=== PATIENT | male | born 1930 | race Caucasian/White ===

== ENCOUNTER 2021-07-21 08:55 | Inpatient (IN) ==
[2021-07-21] MEDS ORDERED: IOPAMIDOL 125 ML BOTTLE IV ONE ×2 (08:56→21:40)
[2021-07-21] MEDS ORDERED: LIDOCAINE 2% URO-JET 10 ML JEL.PF.APP UR ONE (09:26)
[2021-07-21] MEDS ORDERED: LIDOCAINE JEL 2% 1 TUBE 5ML TOPICAL ONE (09:33)
--- NOTE | 2021-07-21 09:33 | Emergency Department Note ---
Male Urogenital HPI General Chief complaint: Urogenital-Male Stated complaint: bleeding penis Time Seen by Provider: 07/21/21 09:00 Source: patient and EMS Mode of arrival: EMS Limitations: no limitations History of Present Illness HPI Narrative: Patient is an 89-year-old gentleman who arrives emergency department complaining of penile bleeding. History is provided by the patient and supplemental information provided by residential staff. The patient has been found to have bleeding from his penis for the past 2 days. This is gradual in onset has been progressively worsening. He has mild discomfort but denies any pain in his penis. He cannot think of any trauma that might of precipitated this. He denies any fever chills or difficulty urinating. He is never had anything like this before. Nothing seems to make it any better or worse. Related Data Home Medications Medication Instructions Recorded Confirmed Dulcolax (bisacodyl) 10 mg ID PRN PRN 07/22/21 07/22/21 Toprol XL 50 mg PO QDAY 07/22/21 07/22/21 acetaminophen 650 mg PO Q4HP PRN MDD 3000mg 07/22/21 07/22/21 atorvastatin 10 mg PO HS 07/22/21 07/22/21 duloxetine 30 mg PO HS 07/22/21 07/22/21 fluticasone propionate 1 puff PO BID 07/22/21 07/22/21 furosemide 40 mg PO QDAY 07/22/21 07/22/21 guaifenesin 600 mg PO BID 07/22/21 07/22/21 lisinopril 2.5 mg PO QDAY 07/22/21 07/22/21 spironolactone 25 mg PO QDAY 07/22/21 07/22/21 Allergies Allergy/AdvReac Type Severity Reaction Status Date / Time No Known Drug Intolerances Allergy Unknown Verified 07/21/21 17:04 GENERIC: UNK - UNKNOWN Allergy Unknown Uncoded 05/01/15 03:59 ALLERGIES NEEDS REVIEW No to Iodine Allergy Unknown Unknown Uncoded 05/01/15 03:59 No to Latex Allergy Unknown Uncoded 05/01/15 03:59 Review of Systems ROS All systems ED: reviewed and negative except as stated. Gastrointestinal: Denies abdominal pain, nausea and vomiting PFSH Narrative Patient History Narrative: Narrative: Medical/Surgical/Family History All Active Problems (Updated 07/22/21 @ 07:20 by Cristofer Brooks DO) Anemia, normocytic normochromic (Acute) Pulmonary embolism (Acute) Gross hematuria (Acute) Medical History COPD (chronic obstructive pulmonary disease) COVID-19 Dementia Pulmonary embolus Social History Smoking Status: Never smoker Alcohol Intake Frequency: holiday/special occasion only Exam Narrative Narrative: I reviewed the vital signs. Gen -patient is awake and alert and in no acute distress. The patient is well groomed. HEENT -head is atraumatic. There is no conjunctival pallor or scleral icterus. Mucous membranes are moist. CV -S1-S2 regular rate and rhythm. Peripheral pulses are palpable. There is no JVD. Resp -breathing is nonlabored. Lungs are clear to auscultation bilaterally. There is no cyanosis. GI - Abdomen is soft and nontender to palpation. There is no guarding or rebound tenderness. Derm -skin is warm and dry. There is no visible rash. -genitourinary exam performed with the patient's nurse at bedside. There is a small amount of bright red blood from the urethral meatus and blood in the patient's depends. There is no active bleeding. MSK -present extremities are atraumatic. Psych -patient has appropriate affect. The patient does not appear internally stimulated. Neuro -patient answers questions appropriately with fluent speech. Patient moves all present extremities equally. General Limitations: no limitations Course Vital Signs Vital signs: Vital Signs Temperature 97.7 F 07/21/21 09:00 Pulse Rate 76 07/21/21 09:00 Respiratory Rate 16 07/21/21 09:00 Blood Pressure 117/82 07/21/21 09:00 Pulse Oximetry (%) 98 07/21/21 09:00 Temperature 98.3 F 07/22/21 03:45 Pulse Rate 76 07/22/21 03:45 Respiratory Rate 16 07/22/21 03:45 Blood Pressure 110/63 07/22/21 03:45 Pulse Oximetry (%) 95 07/22/21 03:45 [facility] Narrative Medical decision making narrative: Patient presents complaining of penile bleeding. I personally performed interpreted limited bedside ultrasound that reveals a distended urinary bladder with approximately 160 mL of urine and visible clots despite patient's inability to void successfully. Nursing staff attempted to place a Dietz catheter but were unsuccessful after multiple attempts. I then called and spoke with Dr. Paez who evaluated the patient in person in the emergency department. He was able to successfully dilate and catheterize the patient's urethra through his hypospadias and he requested a CT pyelogram. This was obtained and Dr. Paez continue to reassess the patient in the emergency department. The patient continued to have significant hematuria with clots despite large volume bladder irrigation. Given this, Dr. Paez recommended admission to the hospital. He spoke with Dr. Andrew who will admit the patient to the medical service. Lab Data Lab results reviewed: Yes I reviewed the patient's lab results. Result diagrams: 07/22/21 01:00 07/22/21 05:42 Labs: Lab Results 07/21/21 07/21/21 07/21/21 Range/Units 11:26 11:26 11:26 WBC 10.2 (4.5-11.0) K/mcL RBC 4.32 L (4.63-6.08) M/mcL Hgb 11.9 L (13.7-17.5) g/dL Hct 37.0 L (40.1-51.0) % POC Hct 36 L (41-55) % MCV 85.6 (80.0-100.0) fL MCH 27.5 (26.0-34.0) pg MCHC 32.2 (31.0-36.0) g/dL RDW 15.6 H (11.5-14.5) % Plt Count 266 (140-440) K/mcL MPV 10.2 (7.4-10.4) fL Neut % (Auto) 75.4 (38.0-78.0) % Lymph % (Auto) 15.0 L (15.5-49.0) % Alexander % (Auto) 8.3 (1.0-12.0) % Eos % (Auto) 0.9 (0.0-7.0) % Baso % (Auto) 0.4 (0.0-2.0) % Lymph # (Auto) 1.53 (1.50-4.80) K/mcL Alexander # (Auto) 0.84 (0.10-0.90) K/mcL Eos # (Auto) 0.09 (0.00-0.70) K/mcL Baso # (Auto) 0.04 (0.00-0.30) K/mcL Absolute Neutrophils 7.67 (1.80-8.00) K/mcL POC PT 12.5 (11.9-14.5) sec POC INR 1.0 (0.8-1.2) POC Sodium 135 (133-145) mEq/L POC Potassium 4.2 (3.3-5.1) mEql/L POC Chloride 94 L (96-108) mEq/L POC Total CO2 26 (22-30) mmol/L POC BUN 20 (6-20) mg/dL POC Creatinine 0.8 (0.6-1.2) mg/dL POC Glucose 88 (70-105) mg/dL POC WB Ioniz Calcium 1.15 L (1.16-1.32) mmEq/L Urine Color Urine Appearance (Clear) Urine pH (5.0-9.0) Ur Specific [place] (1.000-1.035) Urine Protein (Negative) mg/dL Urine Glucose (UA) (Negative) mg/dL Urine Ketones (Negative) mg/dL Urine Occult Blood (Negative) mg/dL Urine Nitrate (Negative) Urine Bilirubin (Negative) mg/dL Urine Urobilinogen mg/dL Ur Leukocyte Esterase (Negative) /ug Urine RBC (0-3) /hpf Urine WBC (0-4) /hpf Ur Squamous Epith Cells (0-4) /hpf Urine Bacteria (0) /hpf Ur Culture Indicated? 07/21/21 Range/Units 13:10 WBC (4.5-11.0) K/mcL RBC (4.63-6.08) M/mcL Hgb (13.7-17.5) g/dL Hct (40.1-51.0) % POC Hct (41-55) % MCV (80.0-100.0) fL MCH (26.0-34.0) pg MCHC (31.0-36.0) g/dL RDW (11.5-14.5) % Plt Count (140-440) K/mcL MPV (7.4-10.4) fL Neut % (Auto) (38.0-78.0) % Lymph % (Auto) (15.5-49.0) % Alexander % (Auto) (1.0-12.0) % Eos % (Auto) (0.0-7.0) % Baso % (Auto) (0.0-2.0) % Lymph # (Auto) (1.50-4.80) K/mcL Alexander # (Auto) (0.10-0.90) K/mcL Eos # (Auto) (0.00-0.70) K/mcL Baso # (Auto) (0.00-0.30) K/mcL Absolute Neutrophils (1.80-8.00) K/mcL POC PT (11.9-14.5) sec POC INR (0.8-1.2) POC Sodium (133-145) mEq/L POC Potassium (3.3-5.1) mEql/L POC Chloride (96-108) mEq/L POC Total CO2 (22-30) mmol/L POC BUN (6-20) mg/dL POC Creatinine (0.6-1.2) mg/dL POC Glucose (70-105) mg/dL POC WB Ioniz Calcium (1.16-1.32) mmEq/L Urine Color Red Urine Appearance Clear (Clear) Urine pH 8.0 (5.0-9.0) Ur Specific [place] 1.007 (1.000-1.035) Urine Protein >=500 A (Negative) mg/dL Urine Glucose (UA) 150 A (Negative) mg/dL Urine Ketones 5 A (Negative) mg/dL Urine Occult Blood >=1.0 A (Negative) mg/dL Urine Nitrate Negative (Negative) Urine Bilirubin Negative (Negative) mg/dL Urine Urobilinogen Negative mg/dL Ur Leukocyte Esterase Negative (Negative) /ug Urine RBC 35 H (0-3) /hpf Urine WBC 0 (0-4) /hpf Ur Squamous Epith Cells 0 (0-4) /hpf Urine Bacteria None (0) /hpf Ur Culture Indicated? No ED POC Tests ED POC Tests: MARIJA - SARS Antigen Negative Discharge Plan Patient/Caregiver Discharge Instructions Pt seen by HAIR MACHINE OPERATOR/PA only: No Clinical Impression: Gross hematuria Patient Disposition: Xfer As Inpt ([facility]) Condition: Fair Discharge Date/Time: 07/21/21 21:30
[2021-07-21 11:33] LABS: POC Pro Time 12.5 sec (11.9-14.5)
[2021-07-21 11:34] LABS: POC Blood Urea Nitrogen 20 mg/dL (6-20); POC CO2 26 mmol/L (22-30); POC Calcium, Ionized 1.15 mmEq/L (1.16-1.32); POC Chloride 94 mEq/L (96-108); POC Creatinine 0.8 mg/dL (0.6-1.2); POC Glucose, Random 88 mg/dL (70-105); POC Hematocrit 36 % (41-55); POC Potassium 4.2 mEql/L (3.3-5.1); POC Sodium 135 mEq/L (133-145)
[2021-07-21 12:00] LABS: Basophils # (Auto) 0.04 K/mcL (0.00-0.30); Basophils % (Auto) 0.4 % (0.0-2.0); Eosinophils # (Auto) 0.09 K/mcL (0.00-0.70); Eosinophils % (Auto) 0.9 % (0.0-7.0); Hemoglobin 11.9 g/dL (13.7-17.5); Lymphocytes # (Auto) 1.53 K/mcL (1.50-4.80); Mean Cell Volume 85.6 fL (80.0-100.0); Mean Corpuscular HGB Conc 32.2 g/dL (31.0-36.0); Mean Platelet Volume 10.2 fL (7.4-10.4); Monocytes # (Auto) 0.84 K/mcL (0.10-0.90); Monocytes % (Auto) 8.3 % (1.0-12.0); Neutrophils % (Auto) 75.4 % (38.0-78.0); Platelet Count 266 K/mcL (140-440); RBC 4.32 M/mcL (4.63-6.08); Red Cell Distribution Width 15.6 % (11.5-14.5); WBC 10.2 K/mcL (4.5-11.0)
[2021-07-21] MEDS ORDERED: morphine 4 MG/ML VIAL IV ONE ×3 (14:22→20:33)
--- NOTE | 2021-07-21 14:47 | Cat Scan Report ---
CLINICAL INFORMATION: Hematuria COMPARISON: None TECHNIQUE: Axial imaging of the abdomen and pelvis was obtained before and after administration of 120 mL of Isovue-370 intravenous contrast. FINDINGS: No acute abnormality of liver, spleen, pancreas or adrenal glands. Kidneys normal in appearance. No renal or ureteral calculi. No hydronephrosis or perinephric inflammation. No renal mass. Large and small bowel are without acute abnormality. There is significant colonic diverticulosis without diverticulitis. There is severely abnormal appearance of the urinary bladder. Catheter in place. Irregular material present around the bladder suggestive of blood clot. Wall of urinary bladder is diffusely heterogeneous and there appears to be some air within the wall of the urinary bladder. Prominent areas of enhancement noted at periphery wall which may represent active contrast extravasation/bleeding. Significant atherosclerotic disease of aorta. 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 Moderate facet disease at origins of large abdominal vessels. IMPRESSION: #1.Irregularly thickened wall of urinary bladder with some intraluminal gas. Reportedly the patient has just had difficult placement of Dietz catheter which would explain the small degree of intraluminal air. Prominent blood clot within the urinary bladder as well as apparent active bleeding at posterior wall of urinary bladder. #2. Normal kidneys and ureters Interpreted and Authenticated by: Sai Garcia M.D. 07/21/21
[2021-07-21] MEDS ORDERED: cefTRIAXone 2 GM in DEXTROSE 5% IN WATER 50 ML IV ONE (15:45)
[2021-07-21 16:15] LABS: Appearance,Urine CLEAR (Clear); Bilirubin,Urine Negative (Negative); Color,Urine RED; Culture Indicated,Urine No; Glucose,Urine (UA) 150 mg/dL (Negative); Ketones,Urine 5 mg/dL (Negative); Leukocyte Esterase,Urine Negative /ug (Negative); Nitrate,Urine Negative (Negative); Protein,Urine >=500 mg/dL (Negative); Specific Gravity,Urine 1.007 (1.000-1.035); Urine Blood >=1.0 mg/dL (Negative); Urine RBC 35 /hpf (0-3); Urine Squamous Epithelial Cell 0 /hpf (0-4); Urine WBC 0 /hpf (0-4); Urobilinogen,Urine Negative
--- NOTE | 2021-07-21 16:53 | Urology Consult Note ---
HPI Data of Consult Consult date: 07/21/21 Primary Care Provider: [facility] Consult Narrative Patient Information: Note initiated : 07/21/21 at 4:41 pm Service Date, if different from initiated Date: [] Patient: Pancho Ha 89 y/o M admitted on for bleeding penis. Chief Complaint: [] cc:: 89-year-old white male presents to the emergency room with 2-day history of gross hematuria with dysuria and urgency. Patient's had negative past history his knowledge and resides at a assisted living facility. Patient's had attempt to place Dietz catheter by nursing staff which was unsuccessful and bedside ultrasound reveals 130+ cc residual urine with apparent bladder clots. Urology consultation has now been obtained for diagnosis and management as well as treatment. Patient by report has been on Eliquis. No known trauma history Genitourinary Additional comments: No noted past history PFSH PFSH Medical History COPD (chronic obstructive pulmonary disease) COVID-19 Dementia Pulmonary embolus Social History alcohol intake frequency: holiday/special occasion only MEDS/ALLERGIES Home Medications and Allergies Allergies Allergy/AdvReac Type Severity Reaction Status Date / Time No Known Drug Intolerances Allergy Unknown Verified 07/21/21 09:29 GENERIC: UNK - UNKNOWN Allergy Unknown Uncoded 05/01/15 03:59 ALLERGIES NEEDS REVIEW No to Iodine Allergy Unknown Unknown Uncoded 05/01/15 03:59 No to Latex Allergy Unknown Uncoded 05/01/15 03:59 Physical Examination Vital Signs Vital signs: Temp Pulse Resp BP Pulse Ox 97.7 F 95 H 16 108/66 98 07/21/21 09:00 07/21/21 16:04 07/21/21 09:00 07/21/21 16:04 07/21/21 16:04 Additional Findings Additional exam: Patient is a thin white male examined with supine position on the emergency room gurney in room T8 Patient has some distress secondary to lower abdominal discomfort but is alert and cooperative Patient is able to answer questions with what seems to be appropriate responses HEENT within normal limits Back no CVA tenderness Respiratory normal respiratory excursion Cardiac with regular rhythm abdominal exam nonobese some mild suprapubic tenderness to percussion and no palpably enlarged bladder noted -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 with apparent pinpoint opening and upon manipulation some blood per meatus Testes bilaterally descended Rectal deferred Musculoskeletal within normal limits with some likely weakness but no obvious pedal edema Results Labs Result diagrams: 07/21/21 11:26 Labs: Abnormal lab results 07/21/21 07/21/21 07/21/21 Range/Units 11:26 11:26 13:10 RBC 4.32 L (4.63-6.08) M/mcL Hgb 11.9 L (13.7-17.5) g/dL Hct 37.0 L (40.1-51.0) % POC Hct 36 L (41-55) % RDW 15.6 H (11.5-14.5) % Lymph % (Auto) 15.0 L (15.5-49.0) % POC Chloride 94 L (96-108) mEq/L POC WB Ioniz Calcium 1.15 L (1.16-1.32) mmEq/L Urine Protein >=500 A (Negative) mg/dL Urine Glucose (UA) 150 A (Negative) mg/dL Urine Ketones 5 A (Negative) mg/dL Urine Occult Blood >=1.0 A (Negative) mg/dL Urine RBC 35 H (0-3) /hpf All other labs normal. A/P Narrative A/P Narrative: Procedure performed: Patient had a Laurent to pass any catheter through the small hypospadiac urethral meatus and an 038 straight Glidewire was utilized to bypass the stricture and was passed into the bladder and coiled. Subsequently an [id number] urethral dilatation with ureteral access sheath to 14 [place] was accomplished and subsequently a 16 [place] coud catheter fashioned with distal opening over the wire. Multiple clots were irrigated from the bladder and after finding of normal BUN and creatinine as well as only mild anemia patient was evaluated in the CT imaging suite. Upon return multiple clots were evacuated as the catheter had become obstructed and approximately 6 L of fluid was used for irrigation. At this point decision made was to place a three-way Dietz catheter and an 18 [place] three-way Dietz was placed with some distal urethral dilatation. Some minor small clots were again irrigated and catheters placed to straight drainage with only light pink-tinged urine E flux noted. Patient will be observed in the emergency room as no beds are available in the hospital due to Covid presently. 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 Questionable etiology with diffuse bladder anomaly on CT imaging with mild anemia Patient had difficult catheterization with urethral dilatation and evacuation of clots with placement of three-way Dietz catheter for bladder irrigation Empiric likelihood of urinary tract infection with cystitis and hemorrhagic component Plan: Continue to monitor with three-way Dietz catheterization and bladder irrigation and start empiric antibiotic regimen with Rocephin Patient may require more emergent surgical intervention with cystoscopy possible TUR but would like to await urine culture results if possible Time Spent With Patient Time: Total time spent is greater than 50% in coordination of care (as documented) at patient's floor/unit and/or counseling patient:
[2021-07-21] MEDS ORDERED: OPIUM/BELLADONNA ALKALOIDS 30 MG SUPP.RECT PR ONE (17:08)
[2021-07-21] MEDS ORDERED: OPIUM/BELLADONNA ALKALOIDS 60 MG SUPP.RECT PR ONE (17:34)
--- NOTE | 2021-07-21 18:37 | Internal Med History&Physical ---
HPI History of Present Illness Patient information: Note initiated : 07/21/21 at 6:30 pm Service Date, if different from initiated Date: [] Patient: Pancho Ha 89 y/o M admitted on for bleeding penis. Chief Complaint: [Hematuria] History of present illness: Mr. Ha is a 89 year old M history of pulmonary embolism questionable history on Eliquis, presenting with 2-day history of gross hematuria. There was no prior similar episode. Patient has acute onset gross hematuria over the past 2 days. Patient is unsure whether he is on Eliquis or not before his PE. He is also not sure for how long he has been diagnosed with PE. Patient denies LOC or lightheadedness. Patient denies chest pain or shortness of breath. Denies abdominal or pelvic pain. Due to his symptoms, he presented to our ED for further evaluation and treatments. Vital signs significant for mild tachycardia with heart rate 100s beats per minutes with rest of the vital signs within normal limits. CBC showing H&H 11.9 and 37.0, respectively. Urologist Dr. Paez was consulted who inserted a three-way urinary catheter and also performed cystoscopy with evacuation of about 1 L of fresh blood from his bladder. Continuous bladder irrigations started after the procedures. Admission request made for continuous bladder irrigations as well as frequent monitoring of H&H levels. Constitutional Constitutional: Absent chills, excessive sweating, fatigue, fever(s) and weakness EENT Eyes: Absent blurry vision, change in vision, loss of vision and other visual disturbances Ears: Absent decreased hearing and tinnitus Nose, mouth and throat: Absent abnormal hearing, dry mouth, headache(s), nasal congestion and sore throat Cardiovascular Cardiovascular: Absent chest pain, chest pain at rest, edema, irregular heart rhythm and palpatations Respiratory Respiratory: Absent cough, dyspnea and wheezing Gastrointestinal Gastrointestinal: Absent abdominal pain, constipation, diarrhea, nausea and vomiting Genitourinary Genitourinary: as per HPI Musculoskeletal Musculoskeletal: Absent back pain, deformity, limited range of motion, muscle cramps, muscle weakness and numbness Integumentary Integumentary: Absent lesions, rash and wounds Neurological Neurological: Absent focal weakness, headache(s) and numbness Psychiatric Psychiatric: Absent anxiety, depression and hallucinations PFSH PFSH All Active Problems (Updated 07/21/21 @ 18:35 by Macho Andrew MD) Anemia, normocytic normochromic (Acute) Pulmonary embolism (Acute) Gross hematuria (Acute) Medical History COPD (chronic obstructive pulmonary disease) COVID-19 Dementia Pulmonary embolus Social History alcohol intake frequency: holiday/special occasion only MEDS/ALLERGIES Home Medications and Allergies Allergies Allergy/AdvReac Type Severity Reaction Status Date / Time No Known Drug Intolerances Allergy Unknown Verified 07/21/21 17:04 GENERIC: UNK - UNKNOWN Allergy Unknown Uncoded 05/01/15 03:59 ALLERGIES NEEDS REVIEW No to Iodine Allergy Unknown Unknown Uncoded 05/01/15 03:59 No to Latex Allergy Unknown Uncoded 05/01/15 03:59 EXAM Constitutional Vitals: Temp Pulse Resp BP Pulse Ox 36.5 C 98 H 16 123/71 96 07/21/21 09:00 07/21/21 17:01 07/21/21 09:00 07/21/21 17:01 07/21/21 17:01 General appearance: cooperative and no acute distress Head Head exam: Present atraumatic and normocephalic Eye Eye exam: Present EOMI and PERRL ENT ENT exam: Present mucous membranes moist, normal exam and normal external ear exam Neck Neck exam: Present normal inspection; Absent lymphadenopathy, tenderness and thyromegaly Respiratory Respiratory exam: Absent accessory muscle use, respiratory distress and wheezes Cardiovascular Cardiovascular exam: Present normal rate and rhythm; Absent JVD GI/Abdominal GI/Abdominal exam: Present normal bowel sounds and soft; Absent organomegaly and tenderness Rectal Rectal exam: Present deferred Additional comments: 3 way urinary catheter in place Extremities Exam Extremities exam: Present full ROM, normal capillary refill and normal inspection; Absent tenderness Neurological Exam Neurological exam: Present alert, CN II-XII intact and oriented X3; Absent motor sensory deficit Psychiatric Psychiatric exam: Present normal affect and normal mood; Absent anxious and depressed Skin Skin exam: Present dry and intact DATA Data Completed and Pending Labs: Labs from last 24 hours 07/21/21 07/21/21 07/21/21 13:10 11:26 11:26 WBC RBC Hgb Hct POC Hct 36 L MCV MCH MCHC RDW Plt Count MPV Neut % (Auto) Lymph % (Auto) Barnes % (Auto) Eos % (Auto) Baso % (Auto) Lymph # (Auto) Barnes # (Auto) Eos # (Auto) Baso # (Auto) Absolute Neutrophils POC PT 12.5 POC INR 1.0 POC Sodium 135 POC Potassium 4.2 POC Chloride 94 L POC Total CO2 26 POC BUN 20 POC Creatinine 0.8 POC Glucose 88 POC WB Ioniz Calcium 1.15 L Urine Color Red Urine Appearance Clear Urine pH 8.0 Ur Specific [place] 1.007 Urine Protein >=500 A Urine Glucose (UA) 150 A Urine Ketones 5 A Urine Occult Blood >=1.0 A Urine Nitrate Negative Urine Bilirubin Negative Urine Urobilinogen Negative Ur Leukocyte Esterase Negative Urine RBC 35 H Urine WBC 0 Ur Squamous Epith Cells 0 Urine Bacteria None Ur Culture Indicated? No 07/21/21 11:26 WBC 10.2 RBC 4.32 L Hgb 11.9 L Hct 37.0 L POC Hct MCV 85.6 MCH 27.5 MCHC 32.2 RDW 15.6 H Plt Count 266 MPV 10.2 Neut % (Auto) 75.4 Lymph % (Auto) 15.0 L Barnes % (Auto) 8.3 Eos % (Auto) 0.9 Baso % (Auto) 0.4 Lymph # (Auto) 1.53 Barnes # (Auto) 0.84 Eos # (Auto) 0.09 Baso # (Auto) 0.04 Absolute Neutrophils 7.67 POC PT POC INR POC Sodium POC Potassium POC Chloride POC Total CO2 POC BUN POC Creatinine POC Glucose POC WB Ioniz Calcium Urine Color Urine Appearance Urine pH Ur Specific [place] Urine Protein Urine Glucose (UA) Urine Ketones Urine Occult Blood Urine Nitrate Urine Bilirubin Urine Urobilinogen Ur Leukocyte Esterase Urine RBC Urine WBC Ur Squamous Epith Cells Urine Bacteria Ur Culture Indicated? A/P Assessment and plan (1) Gross hematuria: Status: Acute (2) Pulmonary embolism: Status: Acute (3) Anemia, normocytic normochromic: Status: Acute Narrative A/P Narrative: Assessment and Plans: 1. Gross hematuria with associated anemia: DDx: Secondary to anticoagulant therapy vs. UTI vs. malignancy Admit to inpatient med surg Urologist Dr. Paez in the case, recs. appreciated Continuous bladder irrigation via 3 way urinary catheter Oxycodone PRN moderate pain Morphine IV PRN severe pain Lidocaine gel topical PRN penile pain H/H q6hr to monitor, transfuse if H/H drops fast or symptomatic NPO with IV fluid for now 2. h/o recent pulmonary embolism: Hold Eliquis GI ppx: not currently indicated DVT ppx: SCDs Code status: Full Prognosis: guarded Disposition: inpatient med surg Time Spent With Patient Time: Total time spent is greater than 50% in coordination of care (as documented) at patient's floor/unit and/or counseling patient: Total time spent with greater than 50% in coordination of care (as documented) at patient's floor/unit and/or counseling patient:: 25 - 35 minutes
[2021-07-21] MEDS ORDERED: LIDOCAINE JEL 2% 1 TUBE 5ML TOPICAL PRN ×2 (18:40→21:40)
[2021-07-21] MEDS ORDERED: morphine 4 MG/ML VIAL IV PRN (20:32)
[2021-07-21] MEDS ORDERED: ACETAMINOPHEN 325 MG TABLET PO PRN (21:40)
[2021-07-21] MEDS ORDERED: ONDANSETRON 4 MG/2 ML VIAL IV PRN (21:40)
[2021-07-21] MEDS ORDERED: ZOLPIDEM 5 MG TABLET PO PRN (21:40)
[2021-07-21] MEDS ORDERED: oxyCODONE HCL 5 MG TABLET PO PRN (21:40)
[2021-07-21] MEDS ORDERED: cefTRIAXone 1 GM in DEXTROSE 5% IN WATER 50 ML IV SCH (21:40)
[2021-07-21] MEDS: 0.9 % SODIUM CHLORIDE 1,000 ML IV SCH (22:04)
[2021-07-21] MEDS: DOCUSATE SODIUM 100 MG CAPSULE PO SCH (22:04)
[2021-07-21] MEDS: 0.9 % SODIUM CHLORIDE 10 ML SYRINGE IV SCH (22:04)
[2021-07-21] MEDS: SENNOSIDES 1 TABLET PO SCH (22:04)
[2021-07-21] MEDS: morphine 4 MG/ML VIAL IV PRN (23:38)
[2021-07-22 03:10] LABS: Hematocrit 33.6 % (40.1-51.0); Hemoglobin 10.9 g/dL (13.7-17.5)
[2021-07-22] MEDS: 0.9 % SODIUM CHLORIDE 10 ML SYRINGE IV SCH ×3 (07:07→20:08)
[2021-07-22] MEDS: 0.9 % SODIUM CHLORIDE 1,000 ML IV SCH (07:08)
--- NOTE | 2021-07-22 07:44 | Urology Progress Note ---
SUBJECTIVE Subjective Patient information: Note initiated : 07/22/21 at 7:39 am Service Date, if different from initiated Date: [] Patient: Pancho Ha 89 y/o M admitted on 07/21/21 for bleeding penis. Chief Complaint: [] Principal diagnosis: Presently doing well and significant less bladder spasm Interval history: Patient presently more comfortable and urine clearing with no clots on continuous bladder irrigation Patient request bladder symptomatology on B&O suppositories and morphine Labs appear stable with hemoglobin 10.9 this morning--chemistry pending as well as cultures Constitutional Vitals: Vital Signs Temp Pulse Resp BP Pulse Ox 97.1 F 83 20 111/56 97 07/22/21 07:28 07/22/21 07:28 07/22/21 07:28 07/22/21 07:28 07/22/21 07:28 Period Temp Pulse Resp BP Sys/Gomez Pulse Ox Last 24 Hr 97.1 F-98.3 F 54-125 16-20 87-158/52-102 91-99 Intake and Output 07/21/21 07/22/21 07/22/21 21:59 05:59 13:59 Intake Total 16682 08111 6907 Output Total 29931 34207 6700 Balance -450 -1450 207 Weight 170 lb Intake & Output: Intake & Output 07/21/21 07/22/21 07/22/21 21:59 05:59 13:59 Intake Total 55772 31472 6907 Output Total 07181 08500 6700 Balance -450 -1450 207 Weight 170 lb Intake: IV 50 907 Sodium Chloride 0.9% 1,000 ml @ 907 100 mls/hr IV .Q10H [facility] Rx#: [id number] Rocephin 2 gm In Dextrose 5% in 50 Water 50 ml @ 100 mls/hr IV ONCE ONE Rx#:[id number] Oral 0 CBI Fluid 56537 62083 6000 Output: CBI Fluid 12496 39231 6700 Other: Urine Appearance Hematuria Clear Small Blood Clots Uretheral (Dietz) Clear Clear Hematuria Small Blood Clots Urine Color [place] Blood Tinged Uretheral (Dietz) [place] Bright Red Blood Tinged Net CBI 500 -150 250 Additional findings Additional findings: Patient alert and cooperative this morning with minimal complaints of bladder spasm as compared to yesterday Afebrile and vital signs stable Abdomen soft and no suprapubic significant tenderness Dietz catheter in place draining light pink-tinged urine on CBI Extremities no pedal edema noted A/P Narrative A/P Narrative: Assessment: Patient with clearing of gross hematuria with less clots presently on decreased Eliquis and antibiotic regimen with addition of finasteride. Will await further lab results as well as cultures and patient can return to oral intake has surgical invention at this point less likely. Plan: Proceed with medical management and await culture results with continuation on antibiotics and will hold anticoagulation Initiate oral intake and continue management of bladder spasms with medical regimen as well Now with patient p.o. would add Vesicare to see if spasm can be reduced reducing opiate intake Time Spent With Patient Time: Total time spent is greater than 50% in coordination of care (as documented) at patient's floor/unit and/or counseling patient:
[2021-07-22 07:49] LABS: Basophils # (Auto) 0.04 K/mcL (0.00-0.30); Basophils % (Auto) 0.3 % (0.0-2.0); Eosinophils # (Auto) 0.02 K/mcL (0.00-0.70); Eosinophils % (Auto) 0.2 % (0.0-7.0); Hematocrit 35.2 % (40.1-51.0); Hemoglobin 10.7 g/dL (13.7-17.5); Lymphocytes # (Auto) 1.22 K/mcL (1.50-4.80); Lymphocytes % (Auto) 10.6 % (15.5-49.0); Mean Cell Volume 89.1 fL (80.0-100.0); Mean Corpuscular HGB Conc 30.4 g/dL (31.0-36.0); Mean Platelet Volume 10.7 fL (7.4-10.4); Monocytes # (Auto) 1.07 K/mcL (0.10-0.90); Monocytes % (Auto) 9.3 % (1.0-12.0); Neutrophils % (Auto) 79.6 % (38.0-78.0); Platelet Count 283 K/mcL (140-440); RBC 3.95 M/mcL (4.63-6.08); Red Cell Distribution Width 16.1 % (11.5-14.5); WBC 11.5 K/mcL (4.5-11.0)
[2021-07-22 08:16] LABS: ALT/SGPT 15 U/L (<40); AST/SGOT 18 U/L (<40); Albumin 3.3 gm/dL (3.2-5.2); Albumin/Globulin Ratio 1.2 (1.0-2.3); Alkaline Phosphatase 99 U/L (39-117); Bilirubin,Total 0.3 mg/dL (0.1-1.0); Blood Urea Nitrogen 20 mg/dL (8-23); Calcium 8.7 mg/dL (8.6-10.4); Carbon Dioxide 23 mmol/L (22-30); Chloride 95 mmol/L (96-108); Globulin 2.8 gm/dL (2.2-3.7); Glomerular Filtration Rate 66; Glucose 118 mg/dL (70-105)
[2021-07-22] MEDS: DOCUSATE SODIUM 100 MG CAPSULE PO SCH ×2 (08:22→20:08)
[2021-07-22] MEDS: cefTRIAXone 1 GM VIAL IV SCH (08:23)
[2021-07-22] MEDS: morphine 4 MG/ML VIAL IV PRN ×2 (12:48→17:23)
[2021-07-22] MEDS ORDERED: NON FORMULARY MEDICATION 1 DOSE MISCELL (Acetaminophen 650 MG) PO PRN (15:28)
[2021-07-22] MEDS ORDERED: BISACODYL 10 MG SUPP.RECT PR PRN (15:33)
--- NOTE | 2021-07-22 15:45 | Internal Med Progress Note ---
SUBJECTIVE Subjective Patient information: Note initiated : 07/22/21 at 3:40 pm Service Date, if different from initiated Date: [] Patient: Pancho Ha 89 y/o M admitted on 07/21/21 for bleeding penis. Chief Complaint: [hematuria] Principal diagnosis: Presently doing well and significant less bladder spasm Interval history: History of present illness: Mr. Ha is a 89 year old M history of pulmonary embolism questionable history on Eliquis, presenting with 2-day history of gross hematuria. There was no prior similar episode. Patient has acute onset gross hematuria over the past 2 days. Patient is unsure whether he is on Eliquis or not before his PE. He is also not sure for how long he has been diagnosed with PE. Patient denies LOC or lightheadedness. Patient denies chest pain or shortness of breath. Denies abdominal or pelvic pain. Due to his symptoms, he presented to our ED for further evaluation and treatments. Vital signs significant for mild tachycardia with heart rate 100s beats per minutes with rest of the vital signs within normal limits. CBC showing H&H 11.9 and 37.0, respectively. Urologist Dr. Paez was consulted who inserted a three-way urinary catheter and also performed cystoscopy with evacuation of about 1 L of fresh blood from his bladder. Continuous bladder irrigations started after the procedures. Admission request made for continuous bladder irrigations as well as frequent monitoring of H&H levels. 07/22: CBI continued, the discharge is now clear. H/H Stable. Denies pelvic or penile pain. Denies SOB. Denies palpitation. Denies chest pain. Denies fever or chills or sweating. Constitutional Vitals: Vital Signs Temp Pulse Resp BP Pulse Ox 36.3 C 75 18 106/62 96 07/22/21 12:00 07/22/21 12:00 07/22/21 12:00 07/22/21 12:00 07/22/21 12:00 Period Temp Pulse Resp BP Sys/Gomez Pulse Ox Last 24 Hr 36.2 C-36.8 C 75-118 16-20 87-152/56-102 91-99 Intake and Output 07/22/21 07/22/21 07/22/21 05:59 13:59 21:59 Intake Total 53570 09202 3000 Output Total 58131 31810 3150 Balance -1450 -553 -150 Intake & Output: Intake & Output 07/22/21 07/22/21 07/22/21 05:59 13:59 21:59 Intake Total 71200 86148 3000 Output Total 01179 39529 3150 Balance -1450 -553 -150 Intake: IV 907 Sodium Chloride 0.9% 1,000 ml @ 907 100 mls/hr IV .Q10H [facility] Rx#: [id number] Oral 0 240 CBI Fluid 40564 17913 3000 Output: CBI Fluid 98415 56218 3150 Other: Meal Breakfast Percent of Meal Consumed 50% Feeding Ability Independent Urine Appearance Clear Small Blood Clots Uretheral (Dietz) Clear Hematuria Clear Small Blood Clots Urine Color [place] Blood Tinged Uretheral (Dietz) Bright Red Net CBI -150 150 150 General appearance: cooperative and no acute distress Head Head exam: Present atraumatic and normocephalic Eye Eye exam: Present EOMI and PERRL ENT ENT exam: Present mucous membranes moist, normal exam and normal external ear exam Neck Neck exam: Present normal inspection; Absent lymphadenopathy, tenderness and thyromegaly Respiratory Respiratory exam: Absent accessory muscle use, respiratory distress and wheezes Cardiovascular Cardiovascular exam: Present normal rate and rhythm; Absent JVD GI/Abdominal GI/Abdominal exam: Present normal bowel sounds and soft; Absent organomegaly and tenderness Rectal Rectal exam: Present deferred Additional comments: Three [address] Extremities Exam Extremities exam: Present full ROM, normal capillary refill and normal inspection; Absent tenderness Neurological Exam Neurological exam: Present alert, CN II-XII intact and oriented X3; Absent motor sensory deficit Psychiatric Psychiatric exam: Present normal affect and normal mood; Absent anxious and depressed Skin Skin exam: Present dry and intact OBJ DATA Labs CBC & Chem 7: 07/22/21 05:43 07/22/21 05:42 Labs: Abnormal Lab Results 07/22/21 07/22/21 07/22/21 05:43 05:42 01:00 WBC 11.5 H RBC 3.95 L Hgb 10.7 L 10.9 L Hct 35.2 L 33.6 L POC Hct MCHC 30.4 L RDW 16.1 H MPV 10.7 H Neut % (Auto) 79.6 H Lymph % (Auto) 10.6 L Lymph # (Auto) 1.[address] [facility] # (Auto) 1.07 H Absolute Neutrophils 9.17 H POC Chloride Chloride 95 L Glucose 118 H POC WB Ioniz Calcium Urine Protein Urine Glucose (UA) Urine Ketones Urine Occult Blood Urine RBC 07/21/21 07/21/21 07/21/21 13:10 11:26 11:26 WBC RBC 4.32 L Hgb 11.9 L Hct 37.0 L POC Hct 36 L MCHC RDW 15.6 H MPV Neut % (Auto) Lymph % (Auto) 15.0 L Lymph # (Auto) [facility] # (Auto) Absolute Neutrophils POC Chloride 94 L Chloride Glucose POC WB Ioniz Calcium 1.15 L Urine Protein >=500 A Urine Glucose (UA) 150 A Urine Ketones 5 A Urine Occult Blood >=1.0 A Urine RBC 35 H Meds: Medications Acetaminophen (Acetaminophen 325 Mg Tablet) 650 mg PO Q6HP PRN; Protocol PRN Reason: Per Pain Protocol/Fever > 101 Atorvastatin Calcium (Atorvastatin 10 Mg Tablet) 10 mg PO HS [facility] Bisacodyl (Bisacodyl 10 Mg Supp.Rect) 10 mg [place] DAILYP PRN PRN Reason: Constipation Ceftriaxone Sodium (Ceftriaxone 1 Gm Vial) 1 gm IV DAILY [facility] Last Admin: 07/22/21 08:23 Dose: 1 gm Documented by: Docusate Sodium (Docusate Sodium 100 Mg Capsule) 100 mg PO BID [facility] Last Admin: 07/22/21 08:22 Dose: Not Given Documented by: Duloxetine HCl (Duloxetine 30 Mg Capsule) 30 mg PO HS [facility] Fluticasone Propionate (Fluticasone Hfa 220mcg Inhaler) 1 puff INH BID [facility] Furosemide (Furosemide 40 Mg Tablet) 40 mg PO DAILY [facility] Guaifenesin (Guaifenesin 600 Mg Tab.Sr.12h) 600 mg PO BID [facility] Lidocaine HCl (Lidocaine Jel 2% 1 Tube 5ml) 1 dose TOPICAL Q6HP PRN PRN Reason: PAINFUL URINATION Lisinopril (Lisinopril 2.5 Mg Tablet) 2.5 mg PO DAILY [facility] Metoprolol Succinate (Metoprolol Succinate 50 Mg Tab.Xl.24h) 50 mg PO DAILY [facility] Morphine Sulfate (Morphine 4 Mg/Ml Vial) 4 mg IV Q4HP PRN; Protocol PRN Reason: Per Pain Protocol Last Admin: 07/22/21 12:48 Dose: 4 mg Documented by: Ondansetron HCl (Ondansetron 4 Mg/2 Ml Vial) 4 mg IV Q6HP PRN PRN Reason: Nausea And Vomiting Oxycodone HCl (Oxycodone Hcl 5 Mg Tablet) 5 mg PO Q4HP PRN; Protocol PRN Reason: Per Pain Protocol Solifenacin ( Vesicare) 5 Mg Tablet 1 dose PO DAILY [facility] Senna (Sennosides 1 Tablet) 2 tab PO HS [facility] Last Admin: 07/21/21 22:04 Dose: Not Given Documented by: Sodium Chloride (0.9 % Sodium Chloride 10 Ml Syringe) 10 ml IV Q8 [facility] Last Admin: 07/22/21 14:32 Dose: Not Given Documented by: Spironolactone (Spironolactone 25 Mg Tablet) 25 mg PO DAILY [facility] Zolpidem Tartrate (Zolpidem 5 Mg Tablet) 5 mg PO HSP PRN PRN Reason: Insomnia A/P Assessment and plan (1) Anemia, normocytic normochromic: Status: Acute (2) Pulmonary embolism: Status: Acute (3) Gross hematuria: Status: Acute Narrative A/P Narrative: Assessment and Plans: 1. Gross hematuria with associated anemia: DDx: Secondary to anticoagulant therapy vs. UTI vs. malignancy Stays in inpatient med surg Urologist Dr. Paez in the case, recs. appreciated Continuous bladder irrigation via 3 way urinary catheter Oxycodone PRN moderate pain Morphine IV PRN severe pain Lidocaine gel topical PRN penile pain cbc w/ auto diff daily to trend H/H, transfuse if H/H drops fast or symptomatic Rocephin to cover for any possibility of UTI 2. h/o recent pulmonary embolism: Hold Eliquis GI ppx: not currently indicated DVT ppx: SCDs Code status: Full Prognosis: guarded Disposition: inpatient med surg Time Spent With Patient Time: Total time spent is greater than 50% in coordination of care (as documented) at patient's floor/unit and/or counseling patient: Total time spent with greater than 50% in coordination of care (as documented) at patient's floor/unit and/or counseling patient:: 15 - 24 minutes QUALITY VTE Deep Vein Thrombosis/Pulmonary Embolism Present on Admission: No
[2021-07-22] MEDS: SOLIFENACIN 5 MG PO SCH (15:46)
[2021-07-22] MEDS ORDERED: OPIUM/BELLADONNA ALKALOIDS 60 MG SUPP.RECT PR PRN (17:13)
[2021-07-22] MEDS: OPIUM/BELLADONNA ALKALOIDS 60 MG SUPP.RECT PR PRN (17:49)
[2021-07-22] MEDS: SENNOSIDES 1 TABLET PO SCH (20:08)
[2021-07-22] MEDS: guaiFENesin 600 MG TAB.SR.12H PO SCH (20:08)
[2021-07-22] MEDS: FLUTICASONE HFA 220MCG INHALER INH SCH (20:08)
[2021-07-22] MEDS ORDERED: DULoxetine 30 MG CAPSULE PO SCH (21:00)
[2021-07-22] MEDS ORDERED: ATORVASTATIN 10 MG TABLET PO SCH (21:00)
[2021-07-23] MEDS: morphine 4 MG/ML VIAL IV PRN (01:30)
[2021-07-23] MEDS: 0.9 % SODIUM CHLORIDE 10 ML SYRINGE IV SCH ×3 (05:52→20:47)
[2021-07-23 06:54] LABS: Basophils # (Auto) 0.02 K/mcL (0.00-0.30); Basophils % (Auto) 0.2 % (0.0-2.0); Eosinophils # (Auto) 0.08 K/mcL (0.00-0.70); Eosinophils % (Auto) 0.9 % (0.0-7.0); Hematocrit 25.7 % (40.1-51.0); Hemoglobin 7.9 g/dL (13.7-17.5); Lymphocytes # (Auto) 1.34 K/mcL (1.50-4.80); Lymphocytes % (Auto) 15.7 % (15.5-49.0); Mean Cell Volume 88.6 fL (80.0-100.0); Mean Corpuscular HGB Conc 30.7 g/dL (31.0-36.0); Mean Platelet Volume 10.7 fL (7.4-10.4); Monocytes % (Auto) 11.7 % (1.0-12.0); Neutrophils % (Auto) 71.5 % (38.0-78.0); Platelet Count 210 K/mcL (140-440); Red Cell Distribution Width 16.2 % (11.5-14.5); WBC 8.5 K/mcL (4.5-11.0)
[2021-07-23 07:25] LABS: ALT/SGPT 9 U/L (<40); AST/SGOT 11 U/L (<40); Albumin 2.8 gm/dL (3.2-5.2); Albumin/Globulin Ratio 1.2 (1.0-2.3); Alkaline Phosphatase 77 U/L (39-117); Bilirubin,Total 0.2 mg/dL (0.1-1.0); Blood Urea Nitrogen 19 mg/dL (8-23); Calcium 8.3 mg/dL (8.6-10.4); Carbon Dioxide 26 mmol/L (22-30); Chloride 98 mmol/L (96-108); Globulin 2.4 gm/dL (2.2-3.7); Glomerular Filtration Rate 75; Glucose 104 mg/dL (70-105)
[2021-07-23] MEDS ORDERED: 0.9 % SODIUM CHLORIDE 250 ML IV SCH ×2 (07:30→17:16)
--- NOTE | 2021-07-23 07:41 | Urology Progress Note ---
SUBJECTIVE Subjective Patient information: Note initiated : 07/23/21 at 7:37 am Service Date, if different from initiated Date: [] Patient: Pancho Ha 89 y/o M admitted on 07/21/21 for bleeding penis. Chief Complaint: [] Principal diagnosis: Presently doing well and significant less bladder spasm Interval history: Patient comfortable this morning but had several episodes of urination necessary last evening and throughout the night Urine this morning light pink-tinged on continued CBI No GI complaints and less bladder spasms Constitutional Vitals: Vital Signs Temp Pulse Resp BP Pulse Ox 97.1 F 83 18 118/67 94 07/23/21 07:21 07/23/21 07:21 07/23/21 07:21 07/23/21 07:21 07/23/21 07:21 Period Temp Pulse Resp BP Sys/Gomez Pulse Ox Last 24 Hr 97.1 F-99.1 F 71-99 18-20 100-118/55-68 93-97 Intake and Output 07/22/21 07/23/21 07/23/21 21:59 05:59 13:59 Intake Total 72479 34391 3000 Output Total 92798 11996 3175 Balance -75 -1150 -175 Weight 177 lb 6.4 oz Intake & Output: Intake & Output 07/22/21 07/23/21 07/23/21 21:59 05:59 13:59 Intake Total 12472 77977 3000 Output Total 02469 18291 3175 Balance -75 -1150 -175 Weight 177 lb 6.4 oz Intake: IV 1000 Sodium Chloride 0.9% 1,000 ml @ 1000 100 mls/hr IV .Q10H [facility] Rx#: [id number] Oral 0 CBI Fluid 98808 91992 3000 Output: CBI Fluid 85240 66764 3175 Other: Urine Appearance Clear Clear Clear Small Blood Clots Uretheral (Dietz) Clear Clear Small Blood Clots Small Blood Clots Urine Color Bright Red [place] Blood Tinged Blood Tinged Uretheral (Dietz) Bright Red [place] Blood Tinged Net CBI 200 250 175 Additional findings Additional findings: Patient alert and oriented and cooperative Breathing comfortably Abdomen soft Dietz catheter in place with three-way irrigation continuing and light pink- tinged urine in bag and Dietz line No pedal edema noted Cardiac rhythm regular A/P Narrative A/P Narrative: Assessment: Improved but continued gross hematuria with some intermittent clots remaining problematic CBC eval with hemoglobin dropped to 7.9 and with continued bleeding and potential for return to the operating room would give 2 units of packed RBCs Chemistry pending and will follow Bladder spasms improved on more regular B and O suppositories and anticholinergic therapy Plan: Continue observation and will keep n.p.o. throughout the morning Transfused 2 units Strong consideration for possible cystoscopy with possible TUR pending response this morning Time Spent With Patient Time: Total time spent is greater than 50% in coordination of care (as documented) at patient's floor/unit and/or counseling patient:
[2021-07-23] MEDS: cefTRIAXone 1 GM VIAL IV SCH (08:10)
[2021-07-23] MEDS: FLUTICASONE HFA 220MCG INHALER INH SCH ×2 (08:11→20:49)
[2021-07-23] MEDS: DOCUSATE SODIUM 100 MG CAPSULE PO SCH ×2 (08:11→20:46)
[2021-07-23] MEDS: guaiFENesin 600 MG TAB.SR.12H PO SCH ×2 (08:11→20:46)
[2021-07-23] MEDS: SOLIFENACIN 5 MG PO SCH (08:11)
[2021-07-23] MEDS ORDERED: SPIRONOLACTONE 25 MG TABLET PO SCH (09:00)
[2021-07-23] MEDS ORDERED: FUROSEMIDE 40 MG TABLET PO SCH (09:00)
[2021-07-23] MEDS ORDERED: LISINOPRIL 2.5 MG TABLET PO SCH (09:00)
[2021-07-23] MEDS ORDERED: METOPROLOL SUCCINATE 50 MG TAB.XL.24H PO SCH (09:00)
[2021-07-23] MEDS: OPIUM/BELLADONNA ALKALOIDS 60 MG SUPP.RECT PR PRN (10:17)
[2021-07-23] MEDS ORDERED: LORazepam 0.5 MG TABLET PO PRN (10:52)
[2021-07-23] MEDS ORDERED: LORazepam 2 MG/ML VIAL IV PRN ×2 (11:01→17:16)
--- NOTE | 2021-07-23 11:59 | Internal Med Progress Note ---
SUBJECTIVE Subjective Patient information: Note initiated : 07/23/21 at 11:54 am Service Date, if different from initiated Date: [] Patient: Pancho Ha 89 y/o M admitted on 07/21/21 for bleeding penis. Chief Complaint: [gross hemateuria] Principal diagnosis: Presently doing well and significant less bladder spasm Interval history: History of present illness: Mr. Ha is a 89 year old M history of pulmonary embolism questionable history on Eliquis, presenting with 2-day history of gross hematuria. There was no prior similar episode. Patient has acute onset gross hematuria over the past 2 days. Patient is unsure whether he is on Eliquis or not before his PE. He is also not sure for how long he has been diagnosed with PE. Patient denies LOC or lightheadedness. Patient denies chest pain or shortness of breath. Denies abdominal or pelvic pain. Due to his symptoms, he presented to our ED for further evaluation and treatments. Vital signs significant for mild tachycardia with heart rate 100s beats per minutes with rest of the vital signs within normal limits. CBC showing H&H 11.9 and 37.0, respectively. Urologist Dr. Paez was consulted who inserted a three-way urinary catheter and also performed cystoscopy with evacuation of about 1 L of fresh blood from his bladder. Continuous bladder irrigations started after the procedures. Admission request made for continuous bladder irrigations as well as frequent monitoring of H&H levels. 07/22: CBI continued, the discharge is now clear. H/H Stable. Denies pelvic or penile pain. Denies SOB. Denies palpitation. Denies chest pain. Denies fever or chills or sweating. 07/23: CBI continued, the discharge is now serosanguineous. Hemoglobin 1 0.7-->7.9. Denies pelvic or penile pain. Denies SOB. Denies palpitation. Denies chest pain. Denies fever or chills or sweating. c/o bilateral feet numbness. Constitutional Vitals: Vital Signs Temp Pulse Resp BP Pulse Ox 36.2 C 83 18 118/67 94 07/23/21 07:21 07/23/21 07:21 07/23/21 07:21 07/23/21 07:21 07/23/21 07:21 Period Temp Pulse Resp BP Sys/Gomez Pulse Ox Last 24 Hr 36.2 C-37.3 C 71-99 18-20 100-118/55-68 93-97 Intake and Output 07/22/21 07/23/21 07/23/21 21:59 05:59 13:59 Intake Total 35447 63567 6000 Output Total 87191 68416 9775 Balance -75 1150 -3775 Weight 80.467 kg Intake & Output: Intake & Output 07/22/21 07/23/21 07/23/21 21:59 05:59 13:59 Intake Total 73486 34004 6000 Output Total 73059 06623 9775 Balance -75 -1150 -3775 Weight 80.467 kg Intake: IV 1000 Sodium Chloride 0.9% 1,000 ml @ 1000 100 mls/hr IV .Q10H [facility] Rx#: [id number] Oral 0 CBI Fluid 32065 06436 6000 Output: Urine Catheter Amount 3300 CBI Fluid 01936 11245 6475 Other: Urine Appearance Clear Clear Clear Small Blood Clots Uretheral (Dietz) Clear Clear Small Blood Clots Small Blood Clots Urine Color Bright Red [place] Bright Red Blood Tinged [place] Blood Tinged Uretheral (Dietz) Bright Red [place] Blood Tinged Urine Odor Normal Net CBI 200 250 300 General appearance: cooperative and no acute distress Head Head exam: Present atraumatic and normocephalic Eye Eye exam: Present EOMI and PERRL ENT ENT exam: Present mucous membranes moist, normal exam and normal external ear exam Neck Neck exam: Present normal inspection; Absent lymphadenopathy, tenderness and thyromegaly Respiratory Respiratory exam: Absent accessory muscle use, respiratory distress and wheezes Cardiovascular Cardiovascular exam: Present normal rate and rhythm; Absent JVD GI/Abdominal GI/Abdominal exam: Present normal bowel sounds and soft; Absent organomegaly and tenderness Rectal Rectal exam: Present deferred Additional comments: 3 [address] catheter [address] Extremities Exam Extremities exam: Present full ROM, normal capillary refill and normal inspection; Absent tenderness Neurological Exam Neurological exam: Present alert, CN II-XII intact and oriented X3; Absent motor sensory deficit Psychiatric Psychiatric exam: Present normal affect and normal mood; Absent anxious and depressed Skin Skin exam: Present dry and intact OBJ DATA Labs CBC & Chem 7: 07/23/21 05:18 07/23/21 05:18 Labs: Abnormal Lab Results 07/23/21 07/23/21 07/22/21 05:18 05:18 05:43 WBC 11.5 H RBC 2.90 L 3.95 L Hgb 7.9 L 10.7 L Hct 25.7 L 35.2 L POC Hct MCHC 30.7 L 30.4 L RDW 16.2 H 16.1 H MPV 10.7 H 10.7 H Neut % (Auto) 79.6 H Lymph % (Auto) 10.6 L Lymph # (Auto) 1.34 L 1.22 L [place] # (Auto) 1.00 H 1.07 H Absolute Neutrophils 9.17 H POC Chloride Chloride Glucose Calcium 8.3 L POC WB Ioniz Calcium Total Protein 5.2 L Albumin 2.8 L Urine Protein Urine Glucose (UA) Urine Ketones Urine Occult Blood Urine RBC 07/22/21 07/22/21 07/21/21 05:42 01:00 13:10 WBC RBC Hgb 10.9 L Hct 33.6 L POC Hct MCHC RDW MPV Neut % (Auto) Lymph % (Auto) Lymph # (Auto) [place] # (Auto) Absolute Neutrophils POC Chloride Chloride 95 L Glucose 118 H Calcium POC WB Ioniz Calcium Total Protein Albumin Urine Protein >=500 A Urine Glucose (UA) 150 A Urine Ketones 5 A Urine Occult Blood >=1.0 A Urine RBC 35 H 07/21/21 07/21/21 11:26 11:26 WBC RBC 4.32 L Hgb 11.9 L Hct 37.0 L POC Hct 36 L MCHC RDW 15.6 H MPV Neut % (Auto) Lymph % (Auto) 15.0 L Lymph # (Auto) [place] # (Auto) Absolute Neutrophils POC Chloride 94 L Chloride Glucose Calcium POC WB Ioniz Calcium 1.15 L Total Protein Albumin Urine Protein Urine Glucose (UA) Urine Ketones Urine Occult Blood Urine RBC Meds: Medications Acetaminophen (Acetaminophen 325 Mg Tablet) 650 mg PO Q6HP PRN; Protocol PRN Reason: Per Pain Protocol/Fever > 101 Atorvastatin Calcium (Atorvastatin 10 Mg Tablet) 10 mg PO HS [facility] Last Admin: 07/22/21 20:08 Dose: 10 mg Documented by: [place] Alkaloids/Opium (Opium/[place] Alkaloids 60 Mg Supp.Rect) 60 mg [place] Q6HP PRN PRN Reason: BLADDER SPASMS Last Admin: 07/23/21 10:17 Dose: 60 mg Documented by: Bisacodyl (Bisacodyl 10 Mg Supp.Rect) 10 mg [place] DAILYP PRN PRN Reason: Constipation Ceftriaxone Sodium (Ceftriaxone 1 Gm Vial) 1 gm IV DAILY [facility] Last Admin: 07/23/21 08:10 Dose: 1 gm Documented by: Docusate Sodium (Docusate Sodium 100 Mg Capsule) 100 mg PO BID [facility] Last Admin: 07/23/21 08:11 Dose: 100 mg Documented by: Duloxetine HCl (Duloxetine 30 Mg Capsule) 30 mg PO [facility] Last Admin: 07/22/21 20:08 Dose: 30 mg Documented by: Fluticasone Propionate (Fluticasone Hfa 220mcg Inhaler) 1 puff INH BID [facility] Last Admin: 07/23/21 08:11 Dose: Not Given Documented by: Furosemide (Furosemide 40 Mg Tablet) 40 mg PO DAILY [facility] Last Admin: 07/23/21 08:11 Dose: 40 mg Documented by: Guaifenesin (Guaifenesin 600 Mg Tab.Sr.12h) 600 mg PO BID [facility] Last Admin: 07/23/21 08:11 Dose: 600 mg Documented by: Sodium Chloride (Sodium Chloride 0.9%) 250 mls @ 20 mls/hr IV .[id number] [facility] Stop: 07/23/21 19:59 Last Admin: 07/23/21 07:38 Dose: 20 mls/hr Documented by: Lidocaine HCl (Lidocaine Jel 2% 1 Tube 5ml) 1 dose TOPICAL Q6HP PRN PRN Reason: PAINFUL URINATION Lisinopril (Lisinopril 2.5 Mg Tablet) 2.5 mg PO DAILY [facility] Last Admin: 07/23/21 08:11 Dose: 2.5 mg Documented by: Lorazepam (Lorazepam 2 Mg/Ml Vial) 0.5 mg IV Q4-6HP PRN PRN Reason: ANXIETY/SEDATION Last Admin: 07/23/21 11:17 Dose: 0.5 mg Documented by: Metoprolol Succinate (Metoprolol Succinate 50 Mg Tab.Xl.24h) 50 mg PO DAILY [facility] Last Admin: 07/23/21 08:11 Dose: 50 mg Documented by: Morphine Sulfate (Morphine 4 Mg/Ml Vial) 4 mg IV Q4HP PRN; Protocol PRN Reason: Per Pain Protocol Last Admin: 07/23/21 01:30 Dose: 4 mg Documented by: Ondansetron HCl (Ondansetron 4 Mg/2 Ml Vial) 4 mg IV Q6HP PRN PRN Reason: Nausea And Vomiting Oxycodone HCl (Oxycodone Hcl 5 Mg Tablet) 5 mg PO Q4HP PRN; Protocol PRN Reason: Per Pain Protocol Solifenacin ( Vesicare) 5 Mg Tablet 1 dose PO DAILY [facility] Last Admin: 07/23/21 08:11 Dose: Not Given Documented by: Senna (Sennosides 1 Tablet) 2 tab PO HS [facility] Last Admin: 07/22/21 20:08 Dose: 2 tab Documented by: Sodium Chloride (0.9 % Sodium Chloride 10 Ml Syringe) 10 ml IV Q8 [facility] Last Admin: 07/23/21 05:52 Dose: 10 ml Documented by: Spironolactone (Spironolactone 25 Mg Tablet) 25 mg PO DAILY [facility] Last Admin: 07/23/21 08:11 Dose: 25 mg Documented by: Zolpidem Tartrate (Zolpidem 5 Mg Tablet) 5 mg PO HSP PRN PRN Reason: Insomnia A/P Assessment and plan (1) Anemia, normocytic normochromic: Status: Acute (2) Pulmonary embolism: Status: Acute (3) Gross hematuria: Status: Acute Narrative A/P Narrative: Assessment and Plans: 1. Gross hematuria with associated anemia: DDx: Secondary to anticoagulant therapy vs. UTI vs. malignancy Stays in inpatient med surg Urologist Dr. Paez in the case, recs. appreciated-->plan to take patient back to the OR for repeat cystoscopy to look for active source of bleeding pRCB transfusion 2 unit, to be given in pre-op Continuous bladder irrigation via 3 way urinary catheter Oxycodone PRN moderate pain Morphine IV PRN severe pain Lidocaine gel topical PRN penile pain cbc w/ auto diff daily to trend H/H, transfuse if H/H drops fast or symptomatic Rocephin to cover for any possibility of UTI NPO with IV fluid for now 2. h/o recent pulmonary embolism: Hold Eliquis GI ppx: not currently indicated DVT ppx: SCDs Code status: Full Prognosis: guarded Disposition: inpatient med surg Time Spent With Patient Time: Total time spent is greater than 50% in coordination of care (as documented) at patient's floor/unit and/or counseling patient: QUALITY VTE Deep Vein Thrombosis/Pulmonary Embolism Present on Admission: No
[2021-07-23] MEDS ORDERED: ceFAZolin 1 GM VIAL IV ONE ×2 (12:00→17:16)
[2021-07-23] MEDS ORDERED: ceFAZolin 2 GM in DEXTROSE 5% IN WATER 50 ML IV SCH (12:00)
--- NOTE | 2021-07-23 12:00 | Urology Progress Note ---
SUBJECTIVE Subjective Patient information: Note initiated : 07/23/21 at 11:55 am Service Date, if different from initiated Date: [] Patient: Pancho Ha 89 y/o M admitted on 07/21/21 for bleeding penis. Chief Complaint: [] Principal diagnosis: Persistent gross hematuria Interval history: Patient doing morning has had more bleeding and at this point more discomfort with bladder spasm medications causing some increased confusion Patient now for consideration of surgical investigation with likely TURBT of suspicious lesion noted on CT scan Blood available and just initiating infusion Constitutional Vitals: Vital Signs Temp Pulse Resp BP Pulse Ox 97.1 F 83 18 118/67 94 07/23/21 07:21 07/23/21 07:21 07/23/21 07:21 07/23/21 07:21 07/23/21 07:21 Period Temp Pulse Resp BP Sys/Gomez Pulse Ox Last 24 Hr 97.1 F-99.1 F 71-99 18-20 100-118/55-68 93-97 Intake and Output 07/22/21 07/23/21 07/23/21 21:59 05:59 13:59 Intake Total 54007 26769 6000 Output Total 60439 34162 9775 Balance -75 -1150 -3775 Weight 177 lb 6.4 oz Intake & Output: Intake & Output 07/22/21 07/23/21 07/23/21 21:59 05:59 13:59 Intake Total 36902 75045 6000 Output Total 27396 04875 9775 Balance -75 -1150 -3775 Weight 177 lb 6.4 oz Intake: IV 1000 Sodium Chloride 0.9% 1,000 ml @ 1000 100 mls/hr IV .Q10H ON LICENSE OF [facility] Rx#: [id number] Oral 0 CBI Fluid 71047 97646 6000 Output: Urine Catheter Amount 3300 CBI Fluid 18327 38307 6475 Other: Urine Appearance Clear Clear Clear Small Blood Clots Uretheral (Dietz) Clear Clear Small Blood Clots Small Blood Clots Urine Color Bright Red [place] Bright Red Blood Tinged [place] Blood Tinged Uretheral (Dietz) Bright Red [place] Blood Tinged Urine Odor Normal Net CBI 200 250 300 Additional findings Additional findings: Patient with some improvement in his confusion and able understand need for blood and surgical intervention Decreased abdominal discomfort persistent blood without clots with CBI running A/P Narrative A/P Narrative: Assessment: 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 and need to have further surgical intervention to assure no bladder tumor or other pathology which would be endoscopically treatable Patient now able to understand and signed consent and will attempt again to have power of senior trial attorney contacted--previously unable Procedure with need for transfusion is more emergent and will proceed to preclude further blood loss and potential renal and bladder dysfunction Plan: Proceed with blood transfusion and plan for transurethral resection bladder tumor likely with cystoscopy and intervention as needed Consent will be signed by patient and procedure is declared an emergency Time Spent With Patient Time: Total time spent is greater than 50% in coordination of care (as documented) at patient's floor/unit and/or counseling patient:
[2021-07-23] MEDS ORDERED: DEXAMETHASONE 10 MG/ML VIAL ONE (15:08)
[2021-07-23] MEDS ORDERED: ONDANSETRON 4 MG/2 ML VIAL ONE (15:08)
[2021-07-23] MEDS ORDERED: PHENYLephrine 1 MG/10 ML SYRINGE (ANEST) ONE (15:08)
[2021-07-23] MEDS ORDERED: PROPOFOL 200 MG/20 ML VIAL IV ONE (15:08)
[2021-07-23] MEDS ORDERED: ePHEDrine 50 MG/5 ML SYRINGE (ANEST) IV ONE (15:08)
[2021-07-23] MEDS ORDERED: KETAMINE 50 MG/ML Syringe (ANEST) IV ONE (15:08)
[2021-07-23] MEDS ORDERED: LIDOCAINE HCL/PF 100 MG/5 ML SYRINGE IV ONE (15:08)
[2021-07-23] MEDS ORDERED: diphenhydrAMINE 50 MG/ML VIAL IV PRN ×2 (15:35→17:16)
[2021-07-23] MEDS ORDERED: ACETAMINOPHEN 1,000 MG/100 ML BAG IV ONE (15:35)
[2021-07-23] MEDS ORDERED: MEPERIDINE 25 MG/ML VIAL IV PRN ×2 (15:35→17:16)
[2021-07-23] MEDS ORDERED: METOPROLOL TARTRATE 5 MG/5 ML VIAL IV PRN ×2 (15:35→17:16)
[2021-07-23] MEDS ORDERED: ePHEDrine 50 MG/ML AMPUL IV PRN ×2 (15:35→17:16)
[2021-07-23] MEDS ORDERED: ONDANSETRON 4 MG/2 ML VIAL IV PRN ×3 (15:35→17:16)
[2021-07-23] MEDS ORDERED: IPRATROPIUM/ALBUTEROL 3 ML AMPUL.NEB NEB PRN ×2 (15:35→17:16)
[2021-07-23] MEDS ORDERED: ATROPINE SULFATE 0.4 MG/ML VIAL IV PRN ×2 (15:35→17:16)
[2021-07-23] MEDS ORDERED: PROMETHAZINE 25 MG/ML VIAL IV PRN ×2 (15:35→17:16)
[2021-07-23] MEDS ORDERED: METHOCARBAMOL 1,000 MG/10 ML VIAL IV PRN ×2 (15:35→17:16)
[2021-07-23] MEDS ORDERED: LACTATED RINGERS 1,000 ML IV SCH ×2 (15:45→17:16)
--- NOTE | 2021-07-23 16:14 | Operative Note ---
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 Ulysses Paez Anesthesia: EMMA Wilkins--type General Drains: 22 Stateless three-way Dietz catheter to straight drainage Estimated blood loss approximately 500 cc blood clot evacuated Specimens: None Complications: None Description: Patient was taken to the operating room and placed under anesthesia in the supine position. Patient had timeout performed and previously placed three-way Dietz catheter was removed no blood noted at the meatus. Patient had prepping and draping in the dorsolithotomy position and cystoscopy was carried out through the hypospadias meatus. Anterior urethra was normal and prostatic urethra showed some radiation changes and median bar impingement. Bladder was entered and massive clot was noted to be remaining. The iliac evacuator was used to evacuate sequentially multiple clots and reexamination with cystoscopy was performed subsequently. 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 Both ureters normal position and configuration effluxing clear urine. Further examination of the prostatic urethra showed several areas of active bleeding with marked vascularity consistent with his radiation therapy. Patient had a bipolar resectoscope used with the button device to fulgurate the bleeding sites and other suspicious areas. Adequate hemostasis was noted and reexamination of the bladder once again showed no other active sites of bleeding. A 22 Stateless three-way Dietz catheter was placed with 15 cc left in balloon and straight drainage accomplished. He was returned to the recovery room in stable condition having tolerated procedure well with slow continuous irrigation initiated.
[2021-07-23] MEDS: fentaNYL 100 MCG/2 ML VIAL IV PRN ×2 (16:33→16:36)
[2021-07-23 17:13] LABS: POC Blood Urea Nitrogen 19 mg/dL (6-20); POC CO2 24 mmol/L (22-30); POC Calcium, Ionized 1.08 mmEq/L (1.16-1.32); POC Chloride 99 mEq/L (96-108); POC Creatinine 0.9 mg/dL (0.6-1.2); POC Glucose, Random 103 mg/dL (70-105); POC Hematocrit 29 % (41-55); POC Potassium 3.8 mEql/L (3.3-5.1); POC Sodium 134 mEq/L (133-145)
[2021-07-23] MEDS ORDERED: ZOLPIDEM 5 MG TABLET PO PRN (17:16)
[2021-07-23] MEDS ORDERED: oxyCODONE HCL 5 MG TABLET PO PRN (17:16)
[2021-07-23] MEDS ORDERED: LIDOCAINE JEL 2% 1 TUBE 5ML TOPICAL PRN (17:16)
[2021-07-23] MEDS ORDERED: BISACODYL 10 MG SUPP.RECT PR PRN (17:16)
[2021-07-23] MEDS ORDERED: fentaNYL 100 MCG/2 ML VIAL IV PRN (17:16)
[2021-07-23] MEDS: ACETAMINOPHEN 325 MG TABLET PO PRN (20:45)
[2021-07-23] MEDS: SENNOSIDES 1 TABLET PO SCH (20:46)
[2021-07-23] MEDS: DULoxetine 30 MG CAPSULE PO SCH (20:46)
[2021-07-23] MEDS: ATORVASTATIN 10 MG TABLET PO SCH (20:46)
[2021-07-24] MEDS: 0.9 % SODIUM CHLORIDE 10 ML SYRINGE IV SCH ×3 (04:50→20:01)
[2021-07-24 08:12] LABS: Basophils # (Auto) 0.01 K/mcL (0.00-0.30); Basophils % (Auto) 0.1 % (0.0-2.0); Eosinophils # (Auto) 0 K/mcL (0.00-0.70); Eosinophils % (Auto) 0 % (0.0-7.0); Hematocrit 26.5 % (40.1-51.0); Hemoglobin 8.2 g/dL (13.7-17.5); Lymphocytes # (Auto) 0.69 K/mcL (1.50-4.80); Lymphocytes % (Auto) 7.6 % (15.5-49.0); Mean Cell Volume 88.9 fL (80.0-100.0); Mean Corpuscular HGB Conc 30.9 g/dL (31.0-36.0); Mean Platelet Volume 10.9 fL (7.4-10.4); Monocytes # (Auto) 0.42 K/mcL (0.10-0.90); Monocytes % (Auto) 4.6 % (1.0-12.0); Neutrophils % (Auto) 87.7 % (38.0-78.0); Platelet Count 217 K/mcL (140-440); RBC 2.98 M/mcL (4.63-6.08); WBC 9.1 K/mcL (4.5-11.0)
[2021-07-24 08:41] LABS: ALT/SGPT 7 U/L (<40); AST/SGOT 12 U/L (<40); Albumin 3.2 gm/dL (3.2-5.2); Albumin/Globulin Ratio 1.5 (1.0-2.3); Alkaline Phosphatase 71 U/L (39-117); Bilirubin,Total 0.2 mg/dL (0.1-1.0); Blood Urea Nitrogen 19 mg/dL (8-23); Calcium 8.4 mg/dL (8.6-10.4); Carbon Dioxide 23 mmol/L (22-30); Chloride 98 mmol/L (96-108); Globulin 2.2 gm/dL (2.2-3.7); Glomerular Filtration Rate 66; Glucose 136 mg/dL (70-105)
[2021-07-24] MEDS: DOCUSATE SODIUM 100 MG CAPSULE PO SCH ×2 (08:47→20:00)
[2021-07-24] MEDS: METOPROLOL SUCCINATE 50 MG TAB.XL.24H PO SCH (08:47)
[2021-07-24] MEDS: guaiFENesin 600 MG TAB.SR.12H PO SCH ×2 (08:48→20:00)
[2021-07-24] MEDS: FUROSEMIDE 40 MG TABLET PO SCH (08:48)
[2021-07-24] MEDS: LISINOPRIL 2.5 MG TABLET PO SCH (08:48)
[2021-07-24] MEDS: OXYBUTYNIN CHLORIDE 5 MG TAB.XL.24H PO SCH (08:48)
[2021-07-24] MEDS: FINASTERIDE 5 MG TABLET PO SCH (08:48)
[2021-07-24] MEDS: SPIRONOLACTONE 25 MG TABLET PO SCH (08:48)
[2021-07-24] MEDS: cefTRIAXone 1 GM VIAL IV SCH (08:49)
[2021-07-24] MEDS: SOLIFENACIN 5 MG PO SCH (08:49)
[2021-07-24] MEDS: FLUTICASONE HFA 220MCG INHALER INH SCH ×2 (08:55→20:01)
--- NOTE | 2021-07-24 09:54 | Urology Progress Note ---
SUBJECTIVE Subjective Patient information: Note initiated : 07/24/21 at 9:49 am Service Date, if different from initiated Date: [] Patient: Pancho Ha 89 y/o M admitted on 07/23/21 for bleeding penis. Chief Complaint: [] Principal diagnosis: Persistent gross hematuria Interval history: Patient comfortable with catheter draining light pink-tinged urine and no clots Patient has been taking p.o. okay but intake not marked overnight Constitutional Vitals: Vital Signs Temp Pulse Resp BP Pulse Ox 97.5 F 66 16 95/54 96 07/24/21 07:07 07/24/21 07:07 07/24/21 07:07 07/24/21 07:07 07/24/21 07:07 Period Temp Pulse Resp BP Sys/Gomez Pulse Ox Last 24 Hr 97.2 F-98.3 F 66-83 9-19 85-131/44-73 84-100 Intake and Output 07/23/21 07/24/21 07/24/21 21:59 05:59 13:59 Intake Total 4625 2600 490 Output Total 3100 2750 Balance 1525 -150 490 Weight 184 lb 11.2 oz Intake & Output: Intake & Output 07/23/21 07/24/21 07/24/21 21:59 05:59 13:59 Intake Total 4625 2600 490 Output Total 3100 2750 Balance 1525 -150 490 Weight 184 lb 11.2 oz Intake: IV 100 250 Sodium Chloride 0.9% 250 ml @ 250 20 mls/hr IV .[id number] [facility] Rx#: [id number] Oral 200 240 Blood Product 325 IV - Manual Only 1200 CBI Fluid 3000 2400 Output: Urine Catheter Amount 350 CBI Fluid 3100 2400 Other: Meal Breakfast Percent of Meal Consumed 100% Feeding Ability Independent Urine Appearance Clear Uretheral ([place]) Hematuria Urine Color [place] Uretheral (Dietz) Maribel # Bowel Movements 0 Net CBI 100 0 Additional findings Additional findings: Patient alert oriented cooperative and afebrile Patient in no acute distress Abdomen soft with three-way catheter in place draining light pink urine is urine without clots on slow CBI A/P Narrative A/P Narrative: Assessment: Significant provement with stable hemoglobin this morning and chemistry remains normal Still some slow bleeding questionably secondary to catheter irritation versus persistent anticoagulation Avodart continuing and present requiring minimal medication for bladder spasm Plan: Observe today and consideration later for cath removal has catheter in prostatic urethra might be causing some continued local irritation Recheck labs tomorrow and continue hydration Time Spent With Patient Time: Total time spent is greater than 50% in coordination of care (as documented) at patient's floor/unit and/or counseling patient:
--- NOTE | 2021-07-24 17:16 | Internal Med Progress Note ---
SUBJECTIVE Subjective Patient information: Note initiated : 07/24/21 at 5:12 pm Service Date, if different from initiated Date: [] Patient: Pancho Ha 89 y/o M admitted on 07/23/21 for bleeding penis. Chief Complaint: [gross hematuria] Principal diagnosis: Persistent gross hematuria Interval history: History of present illness: Mr. Ha is a 89 year old M history of pulmonary embolism questionable history on Eliquis, presenting with 2-day history of gross hematuria. There was no prior similar episode. Patient has acute onset gross hematuria over the past 2 days. Patient is unsure whether he is on Eliquis or not before his PE. He is also not sure for how long he has been diagnosed with PE. Patient denies LOC or lightheadedness. Patient denies chest pain or shortness of breath. Denies abdominal or pelvic pain. Due to his symptoms, he presented to our ED for further evaluation and treatments. Vital signs significant for mild tachycardia with heart rate 100s beats per minutes with rest of the vital signs within normal limits. CBC showing H&H 11.9 and 37.0, respectively. Urologist Dr. Paez was consulted who inserted a three-way urinary catheter and also performed cystoscopy with evacuation of about 1 L of fresh blood from his bladder. Continuous bladder irrigations started after the procedures. Admission request made for continuous bladder irrigations as well as frequent monitoring of H&H levels. 07/22: CBI continued, the discharge is now clear. H/H Stable. Denies pelvic or penile pain. Denies SOB. Denies palpitation. Denies chest pain. Denies fever or chills or sweating. 07/23: CBI continued, the discharge is now serosanguineous. Hemoglobin 10.7-->7.9. Denies pelvic or penile pain. Denies SOB. Denies palpitation. Denies chest pain. Denies fever or chills or sweating. c/o bilateral feet numbness. 07/23: CBI continued, the discharge is still serosanguineous. Hemoglobin stable 7.9-->8.2 s/p 1unit pRBC transfusion on 07/23. Denies pelvic or penile pain. Denies SOB. Denies palpitation. Denies chest pain. Denies fever or chills or sweating. Constitutional Vitals: Vital Signs Temp Pulse Resp BP Pulse Ox 36.6 C 76 16 90/56 95 07/24/21 15:55 07/24/21 15:55 07/24/21 15:55 07/24/21 15:55 07/24/21 15:55 Period Temp Pulse Resp BP Sys/Gomez Pulse Ox Last 24 Hr 36.3 C-36.8 C 66-82 16-18 85-100/45-57 84-100 Intake and Output 07/24/21 07/24/21 07/24/21 05:59 13:59 21:59 Intake Total 2600 3490 3220 Output Total 2750 3800 3800 Balance -150 -310 -580 Weight 83.779 kg 83.779 kg Patient Weight 07/25/21 05:59 Weight 83.779 kg Intake & Output: Intake & Output 07/24/21 07/24/21 07/24/21 05:59 13:59 21:59 Intake Total 2600 3490 3220 Output Total 2750 3800 3800 Balance -150 -310 -580 Weight 83.779 kg 83.779 kg Intake: IV 250 Sodium Chloride 0.9% 250 ml @ 250 20 mls/hr IV .[id number] [facility] Rx#: [id number] Oral 200 240 220 CBI Fluid 2400 3000 3000 Output: Urine Catheter Amount 350 400 400 CBI Fluid 2400 3400 3400 Other: Meal Breakfast Percent of Meal Consumed 100% Feeding Ability Independent Urine Appearance Hematuria Urine Color [place] Bright Red [place] Urine Odor Normal # Bowel Movements 0 Net CBI 0 400 400 General appearance: cooperative and no acute distress Head Head exam: Present atraumatic and normocephalic Eye Eye exam: Present EOMI and PERRL ENT ENT exam: Present mucous membranes moist, normal exam and normal external ear exam Neck Neck exam: Present normal inspection; Absent lymphadenopathy, tenderness and thyromegaly Respiratory Respiratory exam: Absent accessory muscle use, respiratory distress and wheezes Cardiovascular Cardiovascular exam: Present normal rate and rhythm; Absent JVD GI/Abdominal GI/Abdominal exam: Present normal bowel sounds and soft; Absent organomegaly and tenderness Rectal Rectal exam: Present deferred Additional comments: 3 way catheter in place Extremities Exam Extremities exam: Present full ROM, normal capillary refill and normal inspection; Absent tenderness Neurological Exam Neurological exam: Present alert and CN II-XII intact; Absent motor sensory deficit and oriented X3 Additional comments: oriented X2 to person and place only Psychiatric Psychiatric exam: Present normal affect and normal mood; Absent anxious and depressed Skin Skin exam: Present dry and intact OBJ DATA Labs CBC & Chem 7: 07/24/21 07:03 07/24/21 07:03 Labs: Abnormal Lab Results 07/24/21 07/24/21 07/23/21 07:03 07:03 17:00 WBC RBC 2.98 L Hgb 8.2 L Hct 26.5 L POC Hct 29 L MCHC 30.9 L RDW 16.0 H MPV 10.9 H Neut % (Auto) 87.7 H Lymph % (Auto) 7.6 L Lymph # (Auto) 0.69 L [place] # (Auto) Absolute Neutrophils Chloride Glucose 136 H Calcium 8.4 L POC WB Ioniz Calcium 1.08 L Total Protein 5.4 L Albumin 07/23/21 07/23/21 07/22/21 05:18 05:18 05:43 WBC 11.5 H RBC 2.90 L 3.95 L Hgb 7.9 L 10.7 L Hct 25.7 L 35.2 L POC Hct MCHC 30.7 L 30.4 L RDW 16.2 H 16.1 H MPV 10.7 H 10.7 H Neut % (Auto) 79.6 H Lymph % (Auto) 10.6 L Lymph # (Auto) 1.34 L 1.22 L [place] # (Auto) 1.00 H 1.07 H Absolute Neutrophils 9.17 H Chloride Glucose Calcium 8.3 L POC WB Ioniz Calcium Total Protein 5.2 L Albumin 2.8 L 07/22/21 07/22/21 05:42 01:00 WBC RBC Hgb 10.9 L Hct 33.6 L POC Hct MCHC RDW MPV Neut % (Auto) Lymph % (Auto) Lymph # (Auto) [place] # (Auto) Absolute Neutrophils Chloride 95 L Glucose 118 H Calcium POC WB Ioniz Calcium Total Protein Albumin Meds: Medications Acetaminophen (Acetaminophen 325 Mg Tablet) 650 mg PO Q6HP PRN; Protocol PRN Reason: Per Pain Protocol/Fever > 101 Last Admin: 07/23/21 20:45 Dose: 650 mg Documented by: Atorvastatin Calcium (Atorvastatin 10 Mg Tablet) 10 mg PO HS TORSTEN Last Admin: 07/23/21 20:46 Dose: 10 mg Documented by: Bisacodyl (Bisacodyl 10 Mg Supp.Rect) 10 mg PA DAILYP PRN PRN Reason: Constipation Ceftriaxone Sodium (Ceftriaxone 1 Gm Vial) 1 gm IV DAILY [facility] Last Admin: 07/24/21 08:49 Dose: 1 gm Documented by: Docusate Sodium (Docusate Sodium 100 Mg Capsule) 100 mg PO BID [facility] Last Admin: 07/24/21 08:47 Dose: 100 mg Documented by: Duloxetine HCl (Duloxetine 30 Mg Capsule) 30 mg PO HS [facility] Last Admin: 07/23/21 20:46 Dose: 30 mg Documented by: Finasteride (Finasteride 5 Mg Tablet) 5 mg PO DAILY [facility] Last Admin: 07/24/21 08:48 Dose: 5 mg Documented by: Fluticasone Propionate (Fluticasone Hfa 220mcg Inhaler) 1 puff INH BID [facility] Last Admin: 07/24/21 08:55 Dose: Not Given Documented by: Furosemide (Furosemide 40 Mg Tablet) 40 mg PO DAILY [facility] Last Admin: 07/24/21 08:48 Dose: 40 mg Documented by: Guaifenesin (Guaifenesin 600 Mg Tab.Sr.12h) 600 mg PO BID [facility] Last Admin: 07/24/21 08:48 Dose: 600 mg Documented by: Lidocaine HCl (Lidocaine Jel 2% 1 Tube 5ml) 1 dose TOPICAL Q6HP PRN PRN Reason: PAINFUL URINATION Lisinopril (Lisinopril 2.5 Mg Tablet) 2.5 mg PO DAILY [facility] Last Admin: 07/24/21 08:48 Dose: 2.5 mg Documented by: Lorazepam (Lorazepam 2 Mg/Ml Vial) 0.5 mg IV Q4-6HP PRN PRN Reason: ANXIETY/SEDATION Metoprolol Succinate (Metoprolol Succinate 50 Mg Tab.Xl.24h) 50 mg PO DAILY [facility] Last Admin: 07/24/21 08:47 Dose: 50 mg Documented by: Morphine Sulfate (Morphine 4 Mg/Ml Vial) 4 mg IV Q4HP PRN; Protocol PRN Reason: Per Pain Protocol Ondansetron HCl (Ondansetron 4 Mg/2 Ml Vial) 4 mg IV Q6HP PRN PRN Reason: Nausea And Vomiting Oxybutynin Chloride (Oxybutynin Chloride 5 Mg Tab.Xl.24h) 10 mg PO DAILY [facility] Last Admin: 07/24/21 08:48 Dose: 10 mg Documented by: Oxycodone HCl (Oxycodone Hcl 5 Mg Tablet) 5 mg PO Q4HP PRN; Protocol PRN Reason: Per Pain Protocol Solifenacin ( Vesicare) 5 Mg Tablet 1 dose PO DAILY [facility] Last Admin: 07/24/21 08:49 Dose: Not Given Documented by: Senna (Sennosides 1 Tablet) 2 tab PO [facility] Last Admin: 07/23/21 20:46 Dose: 2 tab Documented by: Sodium Chloride (0.9 % Sodium Chloride 10 Ml Syringe) 10 ml IV Q8 [facility] Last Admin: 07/24/21 15:05 Dose: Not Given Documented by: Spironolactone (Spironolactone 25 Mg Tablet) 25 mg PO DAILY [facility] Last Admin: 07/24/21 08:48 Dose: 25 mg Documented by: Tamsulosin HCl (Tamsulosin 0.4 Mg Capsule) 0.4 mg PO [facility] Zolpidem Tartrate (Zolpidem 5 Mg Tablet) 5 mg PO HSP PRN PRN Reason: Insomnia A/P Assessment and plan (1) Anemia, normocytic normochromic: Status: Acute (2) Pulmonary embolism: Status: Acute (3) Gross hematuria: Status: Acute Narrative A/P Narrative: Assessment and Plans: 1. Gross hematuria with associated anemia: DDx: Secondary to anticoagulant therapy vs. UTI vs. malignancy Stays in inpatient med surg Urologist Dr. Paez in the case, recs. appreciated, s/p 2 rounds of cystoscopy and evacuation of blood and clot Continuous bladder irrigation via 3 way urinary catheter Oxycodone PRN moderate pain Morphine IV PRN severe pain Lidocaine gel topical PRN penile pain cbc w/ auto diff daily to trend H/H, transfuse if H/H drops fast or symptomatic; s/p pRCB transfusion 1 unit on 07/23 Rocephin to cover for any possibility of UTI 2. h/o recent pulmonary embolism: Hold Eliquis GI ppx: not currently indicated DVT ppx: SCDs Code status: Full Prognosis: guarded Disposition: inpatient med surg Time Spent With Patient Time: Total time spent is greater than 50% in coordination of care (as documented) at patient's floor/unit and/or counseling patient: QUALITY VTE Deep Vein Thrombosis/Pulmonary Embolism Present on Admission: No
[2021-07-24] MEDS: ACETAMINOPHEN 325 MG TABLET PO PRN (17:19)
[2021-07-24] MEDS: SENNOSIDES 1 TABLET PO SCH (19:59)
[2021-07-24] MEDS: ATORVASTATIN 10 MG TABLET PO SCH (20:00)
[2021-07-24] MEDS: TAMSULOSIN 0.4 MG CAPSULE PO SCH (20:00)
[2021-07-24] MEDS: DULoxetine 30 MG CAPSULE PO SCH (20:00)
[2021-07-25] MEDS: ACETAMINOPHEN 325 MG TABLET PO PRN ×2 (04:40→13:30)
[2021-07-25] MEDS: 0.9 % SODIUM CHLORIDE 10 ML SYRINGE IV SCH ×3 (04:41→22:17)
[2021-07-25] MEDS: DOCUSATE SODIUM 100 MG CAPSULE PO SCH ×2 (09:04→22:16)
[2021-07-25] MEDS: OXYBUTYNIN CHLORIDE 5 MG TAB.XL.24H PO SCH (09:04)
[2021-07-25] MEDS: METOPROLOL SUCCINATE 50 MG TAB.XL.24H PO SCH (09:04)
[2021-07-25] MEDS: LISINOPRIL 2.5 MG TABLET PO SCH (09:04)
[2021-07-25] MEDS: guaiFENesin 600 MG TAB.SR.12H PO SCH ×2 (09:04→22:16)
[2021-07-25] MEDS: SPIRONOLACTONE 25 MG TABLET PO SCH (09:04)
[2021-07-25] MEDS: FUROSEMIDE 40 MG TABLET PO SCH (09:04)
[2021-07-25] MEDS: FINASTERIDE 5 MG TABLET PO SCH (09:04)
[2021-07-25] MEDS: FLUTICASONE HFA 220MCG INHALER INH SCH ×2 (09:08→22:17)
[2021-07-25] MEDS: SOLIFENACIN 5 MG PO SCH (09:09)
[2021-07-25] MEDS: cefTRIAXone 1 GM VIAL IV SCH (09:31)
[2021-07-25 10:08] LABS: Basophils # (Auto) 0.03 K/mcL (0.00-0.30); Basophils % (Auto) 0.3 % (0.0-2.0); Eosinophils # (Auto) 0.12 K/mcL (0.00-0.70); Eosinophils % (Auto) 1.1 % (0.0-7.0); Hematocrit 24.1 % (40.1-51.0); Hemoglobin 7.7 g/dL (13.7-17.5); Lymphocytes # (Auto) 1.33 K/mcL (1.50-4.80); Lymphocytes % (Auto) 11.7 % (15.5-49.0); Mean Cell Volume 88.3 fL (80.0-100.0); Mean Platelet Volume 10.6 fL (7.4-10.4); Monocytes # (Auto) 0.84 K/mcL (0.10-0.90); Monocytes % (Auto) 7.4 % (1.0-12.0); Neutrophils % (Auto) 79.5 % (38.0-78.0); Platelet Count 205 K/mcL (140-440); RBC 2.73 M/mcL (4.63-6.08); Red Cell Distribution Width 16.4 % (11.5-14.5); WBC 11.4 K/mcL (4.5-11.0)
--- NOTE | 2021-07-25 10:10 | Urology Progress Note ---
SUBJECTIVE Subjective Patient information: Note initiated : 07/25/21 at 10:06 am Service Date, if different from initiated Date: [] Patient: Pancho Ha 89 y/o M admitted on 07/23/21 for bleeding penis. Chief Complaint: [] Principal diagnosis: Persistent gross hematuria Interval history: Patient doing well this morning had only 1 irrigation throughout yesterday apparently and light pink change urine only in CBI Constitutional Vitals: Vital Signs Temp Pulse Resp BP Pulse Ox 97.8 F 80 18 97/55 95 07/25/21 07:26 07/25/21 07:26 07/25/21 07:26 07/25/21 07:26 07/25/21 07:26 Period Temp Pulse Resp BP Sys/Gomez Pulse Ox Last 24 Hr 97.8 F-98.3 F 73-94 16-18 90-100/53-57 93-97 Intake and Output 07/24/21 07/25/21 07/25/21 21:59 05:59 13:59 Intake Total 3220 1240 Output Total 3800 500 Balance -580 740 Weight 184 lb 7 oz Intake & Output: Intake & Output 07/24/21 07/25/21 07/25/21 21:59 05:59 13:59 Intake Total 3220 1240 Output Total 3800 500 Balance -580 740 Weight 184 lb 7 oz Intake: Oral 220 1240 CBI Fluid 3000 Output: Urine Catheter Amount 400 Void Amount 500 CBI Fluid 3400 Other: Urine Appearance Clear Clear Small Blood Clots Uretheral (Dietz) Clear Urine Color [place] Uretheral ([place]ietz) [place] Urine Odor Normal # Bowel Movements 1 Net CBI 400 Additional findings Additional findings: Afebrile vital signs stable HEENT within normal limits regular rhythm back no CVA tenderness cardiac regular rhythm Abdomen soft with minimal suprapubic tenderness Catheter clears easily with increased CBI rate A/P Narrative A/P Narrative: Assessment: Continues to improve with markedly less gross hematuria on present medical regimen Voiding trial today with catheter out and continue present meds especially Flomax and Avodart Continue anticoagulation for least 1 week for clearing of his gross hematuria and reassess if medically necessary to return to anticoagulation If needed would consider more controllable methods i.e. warfarin Labs still pending this morning but a serum stable findings Plan: Voiding trial today and would recheck tomorrow for likely discharge Time Spent With Patient Time: Total time spent is greater than 50% in coordination of care (as documented) at patient's floor/unit and/or counseling patient:
[2021-07-25 10:20] LABS: ALT/SGPT 8 U/L (<40); AST/SGOT 19 U/L (<40); Albumin/Globulin Ratio 1.4 (1.0-2.3); Alkaline Phosphatase 72 U/L (39-117); Bilirubin,Total 0.2 mg/dL (0.1-1.0); Blood Urea Nitrogen 29 mg/dL (8-23); Calcium 8.3 mg/dL (8.6-10.4); Carbon Dioxide 22 mmol/L (22-30); Chloride 96 mmol/L (96-108); Globulin 2.1 gm/dL (2.2-3.7); Glomerular Filtration Rate 66; Glucose 95 mg/dL (70-105)
--- NOTE | 2021-07-25 11:20 | Internal Med Progress Note ---
SUBJECTIVE Subjective Patient information: Note initiated : 07/25/21 at 11:15 am Service Date, if different from initiated Date: [] Patient: Pancho Ha 89 y/o M admitted on 07/23/21 for bleeding penis. Chief Complaint: [gross hematuria] Principal diagnosis: Persistent gross hematuria Interval history: History of present illness: Mr. Ha is a 89 year old M history of pulmonary embolism questionable history on Eliquis, presenting with 2-day history of gross hematuria. There was no prior similar episode. Patient has acute onset gross hematuria over the past 2 days. Patient is unsure whether he is on Eliquis or not before his PE. He is also not sure for how long he has been diagnosed with PE. Patient denies LOC or lightheadedness. Patient denies chest pain or shortness of breath. Denies abdominal or pelvic pain. Due to his symptoms, he presented to our ED for further evaluation and treatments. Vital signs significant for mild tachycardia with heart rate 100s beats per minutes with rest of the vital signs within normal limits. CBC showing H&H 11.9 and 37.0, respectively. Urologist Dr. Paez was consulted who inserted a three-way urinary catheter and also performed cystoscopy with evacuation of about 1 L of fresh blood from his bladder. Continuous bladder irrigations started after the procedures. Admission request made for continuous bladder irrigations as well as frequent monitoring of H&H levels. 07/22: CBI continued, the discharge is now clear. H/H Stable. Denies pelvic or penile pain. Denies SOB. Denies palpitation. Denies chest pain. Denies fever or chills or sweating. 07/23: CBI continued, the discharge is now serosanguineous. Hemoglobin 10.7-->7.9. Denies pelvic or penile pain. Denies SOB. Denies palpitation. Denies chest pain. Denies fever or chills or sweating. c/o bilateral feet numbness. 07/24: CBI continued, the discharge is still serosanguineous. Hemoglobin stable 7.9-->8.2 s/p 1unit pRBC transfusion on 07/23. Denies pelvic or penile pain. Denies SOB. Denies palpitation. Denies chest pain. Denies fever or chills or sweating. 07/25: CBI stopped, 3 way urinary catheter discontinued by Dr. Paez. Hemoglobin 8.2-->7.7. Denies pelvic or penile pain. Denies SOB. Denies palpitation. Denies chest pain. Denies fever or chills or sweating. Constitutional Vitals: Vital Signs Temp Pulse Resp BP Pulse Ox 36.6 C 80 18 97/55 95 07/25/21 07:26 07/25/21 07:26 07/25/21 07:26 07/25/21 07:26 07/25/21 07:26 Period Temp Pulse Resp BP Sys/Gomez Pulse Ox Last 24 Hr 36.6 C-36.8 C 73-94 16-18 90-100/53-57 93-97 Intake and Output 07/24/21 07/25/21 07/25/21 21:59 05:59 13:59 Intake Total 3220 1240 Output Total 3800 500 Balance -580 740 Weight 83.659 kg Intake & Output: Intake & Output 07/24/21 07/25/21 07/25/21 21:59 05:59 13:59 Intake Total 3220 1240 Output Total 3800 500 Balance -580 740 Weight 83.659 kg Intake: Oral 220 1240 CBI Fluid 3000 Output: Urine Catheter Amount 400 Void Amount 500 CBI Fluid 3400 Other: Urine Appearance Clear Clear Small Blood Clots Uretheral (Dietz) Clear Clear Urine Color [place] Pale [place] Uretheral (Dietz) [place] Urine Odor Normal # Bowel Movements 1 Net CBI 400 General appearance: cooperative and no acute distress Head Head exam: Present atraumatic and normocephalic Eye Eye exam: Present EOMI and PERRL ENT ENT exam: Present mucous membranes moist, normal exam and normal external ear exam Neck Neck exam: Present normal inspection; Absent lymphadenopathy, tenderness and thyromegaly Respiratory Respiratory exam: Absent accessory muscle use, respiratory distress and wheezes Cardiovascular Cardiovascular exam: Present normal rate and rhythm; Absent JVD GI/Abdominal GI/Abdominal exam: Present normal bowel sounds and soft; Absent organomegaly and tenderness Rectal Rectal exam: Present deferred Extremities Exam Extremities exam: Present full ROM, normal capillary refill and normal inspection; Absent tenderness Neurological Exam Neurological exam: Present altered and CN II-XII intact; Absent alert, motor sensory deficit and oriented X3 Additional comments: oriented X1 to person only Psychiatric Psychiatric exam: Present normal affect and normal mood; Absent anxious and depressed Skin Skin exam: Present dry and intact OBJ DATA Labs CBC & Chem 7: 07/25/21 05:39 07/25/21 05:39 Labs: Abnormal Lab Results 07/25/21 07/25/21 07/24/21 05:39 05:39 07:03 WBC 11.4 H RBC 2.73 L Hgb 7.7 L Hct 24.1 L POC Hct MCHC RDW 16.4 H MPV 10.6 H Neut % (Auto) 79.5 H Lymph % (Auto) 11.7 L Lymph # (Auto) 1.33 L [place] # (Auto) Absolute Neutrophils 9.08 H Sodium 130 L BUN 29 H Glucose 136 H Calcium 8.3 L 8.4 L POC WB Ioniz Calcium Total Protein 5.1 L 5.4 L Albumin 3.0 L Globulin 2.1 L 07/24/21 07/23/21 07/23/21 07:03 17:00 05:18 WBC RBC 2.98 L Hgb 8.2 L Hct 26.5 L POC Hct 29 L MCHC 30.9 L RDW 16.0 H MPV 10.9 H Neut % (Auto) 87.7 H Lymph % (Auto) 7.6 L Lymph # (Auto) 0.69 L [place] # (Auto) Absolute Neutrophils Sodium BUN Glucose Calcium 8.3 L POC WB Ioniz Calcium 1.08 L Total Protein 5.2 L Albumin 2.8 L Globulin 07/23/21 05:18 WBC RBC 2.90 L Hgb 7.9 L Hct 25.7 L POC Hct MCHC 30.7 L RDW 16.2 H MPV 10.7 H Neut % (Auto) Lymph % (Auto) Lymph # (Auto) 1.34 L [place] # (Auto) 1.00 H Absolute Neutrophils Sodium BUN Glucose Calcium POC WB Ioniz Calcium Total Protein Albumin Globulin Meds: Medications Acetaminophen (Acetaminophen 325 Mg Tablet) 650 mg PO Q6HP PRN; Protocol PRN Reason: Per Pain Protocol/Fever > 101 Last Admin: 07/25/21 04:40 Dose: 650 mg Documented by: Atorvastatin Calcium (Atorvastatin 10 Mg Tablet) 10 mg PO HS TORSTEN Last Admin: 07/24/21 20:00 Dose: 10 mg Documented by: Bisacodyl (Bisacodyl 10 Mg Supp.Rect) 10 mg IA DAILYP PRN PRN Reason: Constipation Ceftriaxone Sodium (Ceftriaxone 1 Gm Vial) 1 gm IV DAILY [facility] Last Admin: 07/25/21 09:31 Dose: 1 gm Documented by: Docusate Sodium (Docusate Sodium 100 Mg Capsule) 100 mg PO BID [facility] Last Admin: 07/25/21 09:04 Dose: 100 mg Documented by: Duloxetine HCl (Duloxetine 30 Mg Capsule) 30 mg PO HS [facility] Last Admin: 07/24/21 20:00 Dose: 30 mg Documented by: Finasteride (Finasteride 5 Mg Tablet) 5 mg PO DAILY [facility] Last Admin: 07/25/21 09:04 Dose: 5 mg Documented by: Fluticasone Propionate (Fluticasone Hfa 220mcg Inhaler) 1 puff INH BID [facility] Last Admin: 07/25/21 09:08 Dose: Not Given Documented by: Furosemide (Furosemide 40 Mg Tablet) 40 mg PO DAILY [facility] Last Admin: 07/25/21 09:04 Dose: 40 mg Documented by: Guaifenesin (Guaifenesin 600 Mg Tab.Sr.12h) 600 mg PO BID [facility] Last Admin: 07/25/21 09:04 Dose: 600 mg Documented by: Lidocaine HCl (Lidocaine Jel 2% 1 Tube 5ml) 1 dose TOPICAL Q6HP PRN PRN Reason: PAINFUL URINATION Lisinopril (Lisinopril 2.5 Mg Tablet) 2.5 mg PO DAILY [facility] Last Admin: 07/25/21 09:04 Dose: 2.5 mg Documented by: Lorazepam (Lorazepam 2 Mg/Ml Vial) 0.5 mg IV Q4-6HP PRN PRN Reason: ANXIETY/SEDATION Metoprolol Succinate (Metoprolol Succinate 50 Mg Tab.Xl.24h) 50 mg PO DAILY [facility] Last Admin: 07/25/21 09:04 Dose: 50 mg Documented by: Morphine Sulfate (Morphine 4 Mg/Ml Vial) 4 mg IV Q4HP PRN; Protocol PRN Reason: Per Pain Protocol Ondansetron HCl (Ondansetron 4 Mg/2 Ml Vial) 4 mg IV Q6HP PRN PRN Reason: Nausea And Vomiting Oxybutynin Chloride (Oxybutynin Chloride 5 Mg Tab.Xl.24h) 10 mg PO DAILY [facility] Last Admin: 07/25/21 09:04 Dose: 10 mg Documented by: Oxycodone HCl (Oxycodone Hcl 5 Mg Tablet) 5 mg PO Q4HP PRN; Protocol PRN Reason: Per Pain Protocol Solifenacin ( Vesicare) 5 Mg Tablet 1 dose PO DAILY [facility] Last Admin: 07/25/21 09:09 Dose: Not Given Documented by: Senna (Sennosides 1 Tablet) 2 tab PO [facility] Last Admin: 07/24/21 19:59 Dose: 2 tab Documented by: Sodium Chloride (0.9 % Sodium Chloride 10 Ml Syringe) 10 ml IV Q8 [facility] Last Admin: 07/25/21 04:41 Dose: Not Given Documented by: Spironolactone (Spironolactone 25 Mg Tablet) 25 mg PO DAILY [facility] Last Admin: 07/25/21 09:04 Dose: 25 mg Documented by: Tamsulosin HCl (Tamsulosin 0.4 Mg Capsule) 0.4 mg PO [facility] Last Admin: 07/24/21 20:00 Dose: 0.4 mg Documented by: Zolpidem Tartrate (Zolpidem 5 Mg Tablet) 5 mg PO HSP PRN PRN Reason: Insomnia A/P Assessment and plan (1) Anemia, normocytic normochromic: Status: Acute (2) Pulmonary embolism: Status: Acute (3) Gross hematuria: Status: Acute (4) Hyponatremia: Status: Acute Narrative A/P Narrative: Assessment and Plans: 1. Gross hematuria with associated anemia: DDx: Secondary to anticoagulant therapy vs. UTI vs. malignancy Stays in inpatient med surg Urologist Dr. Paez in the case, recs. appreciated, s/p 2 rounds of cystoscopy and evacuation of blood and clot CBI stopped, 3 way urinary catheter d/c. Oxycodone PRN moderate pain Morphine IV PRN severe pain Lidocaine gel topical PRN penile pain cbc w/ auto diff daily to trend H/H, transfuse if H/H drops fast or symptomatic; s/p pRCB transfusion 1 unit on 07/23 Rocephin to cover for any possibility of UTI 2. h/o recent pulmonary embolism: Hold Eliquis 3. Hyponatremia: Serum sodium level 130 on 07/25 Saline lock, repeat CMP in the morning to trend serum sodium level GI ppx: not currently indicated DVT ppx: SCDs Code status: Full Prognosis: guarded Disposition: inpatient med surg Time Spent With Patient Time: Total time spent is greater than 50% in coordination of care (as documented) at patient's floor/unit and/or counseling patient: QUALITY VTE Deep Vein Thrombosis/Pulmonary Embolism Present on Admission: No
[2021-07-25] MEDS ORDERED: LEUPROLIDE ACETATE 3.75 MG IM ONE (14:05)
[2021-07-25] MEDS: morphine 4 MG/ML VIAL IV PRN ×2 (14:16→20:48)
--- NOTE | 2021-07-25 14:20 | Urology Progress Note ---
SUBJECTIVE Subjective Patient information: Note initiated : 07/25/21 at 2:15 pm Service Date, if different from initiated Date: [] Patient: Pancho Ha 89 y/o M admitted on 07/23/21 for bleeding penis. Chief Complaint: [] Principal diagnosis: Persistent gross hematuria Interval history: Call back to see patient for recurrent blood clots and urinary retention Patient passing large clots and now unable to void with 400 cc residual urine in the bladder Patient markedly uncomfortable with inability to void Constitutional Vitals: Vital Signs Temp Pulse Resp BP Pulse Ox 98 F 86 16 99/56 94 07/25/21 11:20 07/25/21 11:20 07/25/21 11:20 07/25/21 11:20 07/25/21 11:20 Period Temp Pulse Resp BP Sys/Gomez Pulse Ox Last 24 Hr 97.8 F-98.3 F 76-94 16-18 90-99/55-57 93-95 Intake and Output 07/25/21 07/25/21 07/25/21 05:59 13:59 21:59 Intake Total 1240 Output Total 500 Balance 740 Intake & Output: Intake & Output 07/25/21 07/25/21 07/25/21 05:59 13:59 21:59 Intake Total 1240 Output Total 500 Balance 740 Intake: Oral 1240 Output: Void Amount 500 Other: Urine Appearance Clear Small Blood Clots Uretheral ([place]) Clear Urine Color Pale [place] Uretheral (Dietz) [place] # Bowel Movements 1 Additional findings Additional findings: Patient in acute distress secondary to inability to void with suprapubic tenderness Cardiac rate elevated but regular Abdomen significant suprapubic tenderness consistent with his urinary retention blood at meatus consistent with his clot retention A/P Narrative A/P Narrative: Assessment: 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 Bladder irrigated with 22 Yi three-way Dietz catheter placed and clots irrigated with resumption of continuous bladder irrigation Attempted to start ADT but pharmacy has notified me that no ketoconazole, bicalutamide or Lupron is available We will attempt to get hold of the pharmacy to see if he can be obtained versus consideration for bilateral orchiectomy if not available and will monitor for need for more blood replacement Plan: Continue CBI and pain control as needed with intermittent irrigation as needed We will continue attempts at ADT for likely control of 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
[2021-07-25] MEDS ORDERED: LEUPROLIDE ACETATE 22.5 MG IM ONE (14:30)
[2021-07-25] MEDS: BICALUTAMIDE 50 MG TABLET PO SCH (15:25)
--- NOTE | 2021-07-25 21:01 | Urology Progress Note ---
SUBJECTIVE Subjective Patient information: Note initiated : 07/25/21 at 8:58 pm Service Date, if different from initiated Date: [] Patient: Pancho Ha 89 y/o M admitted on 07/23/21 for bleeding penis. Chief Complaint: [] Principal diagnosis: Persistent gross hematuria Interval history: Patient had self removal of the Dietz catheter secondary to confusion or discomfort and still had some bleeding at the meatus with hematuria noted Called to replace catheter Constitutional Vitals: Vital Signs Temp Pulse Resp BP Pulse Ox 97.7 F 73 12 76/46 100 07/25/21 15:47 07/25/21 15:47 07/25/21 15:47 07/25/21 15:47 07/25/21 15:47 Period Temp Pulse Resp BP Sys/Gomez Pulse Ox Last 24 Hr 97.7 F-98.2 F 73-86 12-18 76-99/46-56 93-100 Intake and Output 07/25/21 07/25/21 07/25/21 05:59 13:59 21:59 Intake Total 1240 400 Output Total 500 Balance 740 400 Intake & Output: Intake & Output 07/25/21 07/25/21 07/25/21 05:59 13:59 21:59 Intake Total 1240 400 Output Total 500 Balance 740 400 Intake: Oral 1240 400 Output: Void Amount 500 Other: Meal Dinner Percent of Meal Consumed 75% Feeding Ability Independent Urine Appearance Clear Small Blood Clots Uretheral (Dietz) Clear Urine Color Pale [place] Uretheral (Dietz) [place] # Bowel Movements 1 Additional findings Additional findings: Patient with discomfort likely secondary to bladder and blood noted at the meatus Patient vital signs normal and suprapubic tenderness otherwise only noted A/P Narrative A/P Narrative: Procedure: Patient had 22 [place] coud three-way Dietz catheter replaced under local analgesia and for some assistance with 2 g-4mg of patient had some small clots irrigated from the bladder morphine But no other marked urinary retention noted CBI restarted Plan: Continue present management and recheck labs in the morning with addition of bicalutamide when available to Lupron administered this afternoon Time Spent With Patient Time: Total time spent is greater than 50% in coordination of care (as documented) at patient's floor/unit and/or counseling patient:
[2021-07-25] MEDS: DULoxetine 30 MG CAPSULE PO SCH (22:16)
[2021-07-25] MEDS: TAMSULOSIN 0.4 MG CAPSULE PO SCH (22:16)
[2021-07-25] MEDS: SENNOSIDES 1 TABLET PO SCH (22:16)
[2021-07-25] MEDS: ATORVASTATIN 10 MG TABLET PO SCH (22:16)
[2021-07-26] MEDS: 0.9 % SODIUM CHLORIDE 10 ML SYRINGE IV SCH ×3 (05:33→21:40)
[2021-07-26 07:19] LABS: Basophils # (Auto) 0.03 K/mcL (0.00-0.30); Basophils % (Auto) 0.3 % (0.0-2.0); Eosinophils # (Auto) 0.16 K/mcL (0.00-0.70); Eosinophils % (Auto) 1.5 % (0.0-7.0); Hematocrit 26.3 % (40.1-51.0); Hemoglobin 8.4 g/dL (13.7-17.5); Lymphocytes # (Auto) 1.53 K/mcL (1.50-4.80); Mean Cell Volume 88.9 fL (80.0-100.0); Mean Corpuscular HGB Conc 31.9 g/dL (31.0-36.0); Mean Platelet Volume 10.5 fL (7.4-10.4); Monocytes # (Auto) 0.89 K/mcL (0.10-0.90); Monocytes % (Auto) 8.2 % (1.0-12.0); Platelet Count 207 K/mcL (140-440); RBC 2.96 M/mcL (4.63-6.08); Red Cell Distribution Width 16.8 % (11.5-14.5); WBC 10.9 K/mcL (4.5-11.0)
--- NOTE | 2021-07-26 07:29 | Urology Progress Note ---
SUBJECTIVE Subjective Patient information: Note initiated : 07/26/21 at 7:25 am Service Date, if different from initiated Date: [] Patient: Pancho Ha 89 y/o M admitted on 07/23/21 for bleeding penis. Chief Complaint: [] Principal diagnosis: Persistent gross hematuria Interval history: Patient doing well this morning and catheter left in place with minimal CBI to keep drainage clear Labs still pending Constitutional Vitals: Vital Signs Temp Pulse Resp BP Pulse Ox 97.8 F 70 16 91/50 98 07/26/21 03:05 07/26/21 03:05 07/26/21 03:05 07/26/21 03:05 07/26/21 03:05 Period Temp Pulse Resp BP Sys/Gomez Pulse Ox Last 24 Hr 97.1 F-99.2 F 70-86 12-20 76-99/42-56 94-100 Intake and Output 07/25/21 07/26/21 07/26/21 21:59 05:59 13:59 Intake Total 400 6200 Output Total 6250 Balance 400 -50 Weight 176 lb 3 oz Intake & Output: Intake & Output 07/25/21 07/26/21 07/26/21 21:59 05:59 13:59 Intake Total 400 6200 Output Total 6250 Balance 400 -50 Weight 176 lb 3 oz Intake: Oral 400 200 CBI Fluid 6000 Output: CBI Fluid 6250 Other: Meal Dinner Percent of Meal Consumed 75% Feeding Ability Independent Urine Appearance Uretheral (Dietz) Clear Urine Color Uretheral (Dietz) Bright Red Net CBI 300 Additional findings Additional findings: Patient comfortable and vital signs stable Patient oriented and cooperative Chest normal respiratory excursion Cardiac regular rhythm Dietz in place draining easily clearing effluent with no clots A/P Narrative A/P Narrative: Assessment: continues to improve with less disorientation and urine clearing on slow CBI Labs pending and will help not to need more red blood cell supplementation At this point will transfer care to Dr. Lopez Plan: Continue medical care pending lab results and would observe today with catheter management as per bleeding and per Dr. Lopez and Pui Time Spent With Patient Time: Total time spent is greater than 50% in coordination of care (as documented) at patient's floor/unit and/or counseling patient:
[2021-07-26] MEDS: BICALUTAMIDE 50 MG TABLET PO SCH (08:37)
[2021-07-26] MEDS: METOPROLOL SUCCINATE 50 MG TAB.XL.24H PO SCH (08:37)
[2021-07-26] MEDS: cefTRIAXone 1 GM VIAL IV SCH (08:37)
[2021-07-26] MEDS: DOCUSATE SODIUM 100 MG CAPSULE PO SCH ×2 (08:37→21:38)
[2021-07-26] MEDS: guaiFENesin 600 MG TAB.SR.12H PO SCH ×2 (08:38→21:37)
[2021-07-26] MEDS: FLUTICASONE HFA 220MCG INHALER INH SCH ×2 (08:38→21:38)
[2021-07-26] MEDS: SPIRONOLACTONE 25 MG TABLET PO SCH (08:38)
[2021-07-26] MEDS: FUROSEMIDE 40 MG TABLET PO SCH (08:38)
[2021-07-26] MEDS: FINASTERIDE 5 MG TABLET PO SCH (08:38)
[2021-07-26] MEDS: SOLIFENACIN 5 MG PO SCH (08:38)
[2021-07-26] MEDS: OXYBUTYNIN CHLORIDE 5 MG TAB.XL.24H PO SCH (08:38)
[2021-07-26] MEDS: LISINOPRIL 2.5 MG TABLET PO SCH (08:38)
[2021-07-26 09:06] LABS: ALT/SGPT 8 U/L (<40); AST/SGOT 17 U/L (<40); Albumin 3.1 gm/dL (3.2-5.2); Albumin/Globulin Ratio 1.3 (1.0-2.3); Alkaline Phosphatase 80 U/L (39-117); Bilirubin,Total 0.2 mg/dL (0.1-1.0); Blood Urea Nitrogen 28 mg/dL (8-23); Calcium 8.9 mg/dL (8.6-10.4); Carbon Dioxide 21 mmol/L (22-30); Chloride 96 mmol/L (96-108); Globulin 2.4 gm/dL (2.2-3.7); Glomerular Filtration Rate 79; Glucose 84 mg/dL (70-105); Testosterone, Total 2.69 ng/mL (2.70-8.40)
--- NOTE | 2021-07-26 11:03 | Internal Med Progress Note ---
SUBJECTIVE Subjective Patient information: Note initiated : 07/26/21 at 11:00 am Service Date, if different from initiated Date: [] Patient: Pancho Ha 89 y/o M admitted on 07/23/21 for bleeding penis. Chief Complaint: [gross hematuria] Principal diagnosis: Persistent gross hematuria Interval history: History of present illness: Mr. Ha is a 89 year old M history of pulmonary embolism questionable history on Eliquis, presenting with 2-day history of gross hematuria. There was no prior similar episode. Patient has acute onset gross hematuria over the past 2 days. Patient is unsure whether he is on Eliquis or not before his PE. He is also not sure for how long he has been diagnosed with PE. Patient denies LOC or lightheadedness. Patient denies chest pain or shortness of breath. Denies abdominal or pelvic pain. Due to his symptoms, he presented to our ED for further evaluation and treatments. Vital signs significant for mild tachycardia with heart rate 100s beats per minutes with rest of the vital signs within normal limits. CBC showing H&H 11.9 and 37.0, respectively. Urologist Dr. Paez was consulted who inserted a three-way urinary catheter and also performed cystoscopy with evacuation of about 1 L of fresh blood from his bladder. Continuous bladder irrigations started after the procedures. Admission request made for continuous bladder irrigations as well as frequent monitoring of H&H levels. 07/22: CBI continued, the discharge is now clear. H/H Stable. Denies pelvic or penile pain. Denies SOB. Denies palpitation. Denies chest pain. Denies fever or chills or sweating. 07/23: CBI continued, the discharge is now serosanguineous. Hemoglobin 10.7-->7.9. Denies pelvic or penile pain. Denies SOB. Denies palpitation. Denies chest pain. Denies fever or chills or sweating. c/o bilateral feet numbness. 07/24: CBI continued, the discharge is still serosanguineous. Hemoglobin stable 7.9-->8.2 s/p 1unit pRBC transfusion on 07/23. Denies pelvic or penile pain. Denies SOB. Denies palpitation. Denies chest pain. Denies fever or chills or sweating. 07/25: CBI stopped, 3 way urinary catheter discontinued by Dr. Paez. Hemoglobin 8.2-->7.7. Denies pelvic or penile pain. Denies SOB. Denies palpitation. Denies chest pain. Denies fever or chills or sweating. 07/26: Patient passed 3 large blood clots last night after 3 way catheter was d/c by Dr. Paez. [address] catheter replaced by Dr. Paez. He pulled out the catheter later the night. Dr. Paez replaced the 3 way catheter and ordered CBI. Hemoglobin 7.7-->8.4. Constitutional Vitals: Vital Signs Temp Pulse Resp BP Pulse Ox 36.6 C 65 18 92/52 96 07/26/21 08:00 07/26/21 08:00 07/26/21 08:00 07/26/21 08:00 07/26/21 08:00 Period Temp Pulse Resp BP Sys/Gomez Pulse Ox Last 24 Hr 36.2 C-37.3 C 65-86 12-20 76-99/42-56 94-100 Intake and Output 07/25/21 07/26/21 07/26/21 21:59 05:59 13:59 Intake Total 400 6200 Output Total 6250 Balance 400 -50 Weight 79.917 kg Intake & Output: Intake & Output 07/25/21 07/26/21 07/26/21 21:59 05:59 13:59 Intake Total 400 6200 Output Total 6250 Balance 400 -50 Weight 79.917 kg Intake: Oral 400 200 CBI Fluid 6000 Output: CBI Fluid 6250 Other: Meal Dinner Percent of Meal Consumed 75% Feeding Ability Independent Urine Appearance Uretheral (Dietz) Clear Hematuria Small Blood Clots Urine Color Uretheral (Dietz) Bright Red Blood Tinged Urine Odor Uretheral (Dietz) Normal Net CBI 300 Additional comments: 3 way catheter in place OBJ DATA Labs CBC & Chem 7: 07/26/21 05:42 07/26/21 05:42 Labs: Abnormal Lab Results 07/26/21 07/26/21 07/25/21 05:42 05:42 05:39 WBC RBC 2.96 L Hgb 8.4 L Hct 26.3 L POC Hct MCHC RDW 16.8 H MPV 10.5 H Neut % (Auto) Lymph % (Auto) 14.0 L Lymph # (Auto) Absolute Neutrophils 8.31 H Sodium 131 L 130 L Carbon Dioxide 21 L BUN 28 H 29 H Glucose Calcium 8.3 L POC WB Ioniz Calcium Total Protein 5.5 L 5.1 L Albumin 3.1 L 3.0 L Globulin 2.1 L Testosterone Level 2.69 L 07/25/21 07/24/21 07/24/21 05:39 07:03 07:03 WBC 11.4 H RBC 2.73 L 2.98 L Hgb 7.7 L 8.2 L Hct 24.1 L 26.5 L POC Hct MCHC 30.9 L RDW 16.4 H 16.0 H MPV 10.6 H 10.9 H Neut % (Auto) 79.5 H 87.7 H Lymph % (Auto) 11.7 L 7.6 L Lymph # (Auto) 1.33 L 0.69 L Absolute Neutrophils 9.08 H Sodium Carbon Dioxide BUN Glucose 136 H Calcium 8.4 L POC WB Ioniz Calcium Total Protein 5.4 L Albumin Globulin Testosterone Level 07/23/21 17:00 WBC RBC Hgb Hct POC Hct 29 L MCHC RDW MPV Neut % (Auto) Lymph % (Auto) Lymph # (Auto) Absolute Neutrophils Sodium Carbon Dioxide BUN Glucose Calcium POC WB Ioniz Calcium 1.08 L Total Protein Albumin Globulin Testosterone Level Meds: Medications Acetaminophen (Acetaminophen 325 Mg Tablet) 650 mg PO Q6HP PRN; Protocol PRN Reason: Per Pain Protocol/Fever > 101 Last Admin: 07/25/21 13:30 Dose: 650 mg Documented by: Atorvastatin Calcium (Atorvastatin 10 Mg Tablet) 10 mg PO HS [facility] Last Admin: 07/25/21 22:16 Dose: 10 mg Documented by: Bicalutamide (Bicalutamide 50 Mg Tablet) 50 mg PO DAILY [facility] Last Admin: 07/26/21 08:37 Dose: 50 mg Documented by: Bisacodyl (Bisacodyl 10 Mg Supp.Rect) 10 mg [place] DAILYP PRN PRN Reason: Constipation Ceftriaxone Sodium (Ceftriaxone 1 Gm Vial) 1 gm IV DAILY [facility] Last Admin: 07/26/21 08:37 Dose: 1 gm Documented by: Docusate Sodium (Docusate Sodium 100 Mg Capsule) 100 mg PO BID [facility] Last Admin: 07/26/21 08:37 Dose: 100 mg Documented by: Duloxetine HCl (Duloxetine 30 Mg Capsule) 30 mg PO [facility] Last Admin: 07/25/21 22:16 Dose: 30 mg Documented by: Finasteride (Finasteride 5 Mg Tablet) 5 mg PO DAILY [facility] Last Admin: 07/26/21 08:38 Dose: 5 mg Documented by: Fluticasone Propionate (Fluticasone Hfa 220mcg Inhaler) 1 puff INH BID [facility] Last Admin: 07/26/21 08:38 Dose: Not Given Documented by: Furosemide (Furosemide 40 Mg Tablet) 40 mg PO DAILY [facility] Last Admin: 07/26/21 08:38 Dose: 40 mg Documented by: Guaifenesin (Guaifenesin 600 Mg Tab.Sr.12h) 600 mg PO BID [facility] Last Admin: 07/26/21 08:38 Dose: 600 mg Documented by: Lidocaine HCl (Lidocaine Jel 2% 1 Tube 5ml) 1 dose TOPICAL Q6HP PRN PRN Reason: PAINFUL URINATION Lisinopril (Lisinopril 2.5 Mg Tablet) 2.5 mg PO DAILY [facility] Last Admin: 07/26/21 08:38 Dose: 2.5 mg Documented by: Lorazepam (Lorazepam 2 Mg/Ml Vial) 0.5 mg IV Q4-6HP PRN PRN Reason: ANXIETY/SEDATION Metoprolol Succinate (Metoprolol Succinate 50 Mg Tab.Xl.24h) 50 mg PO DAILY [facility] Last Admin: 07/26/21 08:37 Dose: 50 mg Documented by: Morphine Sulfate (Morphine 4 Mg/Ml Vial) 4 mg IV Q4HP PRN; Protocol PRN Reason: Per Pain Protocol Last Admin: 07/25/21 20:48 Dose: 4 mg Documented by: Ondansetron HCl (Ondansetron 4 Mg/2 Ml Vial) 4 mg IV Q6HP PRN PRN Reason: Nausea And Vomiting Oxybutynin Chloride (Oxybutynin Chloride 5 Mg Tab.Xl.24h) 10 mg PO DAILY [facility] Last Admin: 07/26/21 08:38 Dose: 10 mg Documented by: Oxycodone HCl (Oxycodone Hcl 5 Mg Tablet) 5 mg PO Q4HP PRN; Protocol PRN Reason: Per Pain Protocol Solifenacin ( Vesicare) 5 Mg Tablet 1 dose PO DAILY [facility] Last Admin: 07/26/21 08:38 Dose: Not Given Documented by: Senna (Sennosides 1 Tablet) 2 tab PO HS [facility] Last Admin: 07/25/21 22:16 Dose: 2 tab Documented by: Sodium Chloride (0.9 % Sodium Chloride 10 Ml Syringe) 10 ml IV Q8 [facility] Last Admin: 07/26/21 05:33 Dose: 10 ml Documented by: Spironolactone (Spironolactone 25 Mg Tablet) 25 mg PO DAILY [facility] Last Admin: 07/26/21 08:38 Dose: 25 mg Documented by: Tamsulosin HCl (Tamsulosin 0.4 Mg Capsule) 0.4 mg PO HS [facility] Last Admin: 07/25/21 22:16 Dose: 0.4 mg Documented by: Zolpidem Tartrate (Zolpidem 5 Mg Tablet) 5 mg PO HSP PRN PRN Reason: Insomnia A/P Assessment and plan (1) Anemia, normocytic normochromic: Status: Acute (2) Pulmonary embolism: Status: Acute (3) Gross hematuria: Status: Acute (4) Hyponatremia: Status: Acute Narrative A/P Narrative: Assessment and Plans: 1. Gross hematuria with associated anemia: DDx: Secondary to anticoagulant therapy vs. UTI vs. malignancy Stays in inpatient med surg Urologist Dr. Paez in the case, recs. appreciated, s/p 2 rounds of cystoscopy and evacuation of blood and clot Patient passed 3 large blood clots last night after 3 way catheter was d/c by Dr. Paez. [address] catheter replaced by Dr. Paez. He pulled out the catheter later the night. Dr. Paez replaced the 3 way catheter and ordered CBI Oxycodone PRN moderate pain Morphine IV PRN severe pain Lidocaine gel topical PRN penile pain cbc w/ auto diff daily to trend H/H, transfuse if H/H drops fast or symptomatic; s/p pRCB transfusion 1 unit on 07/23 Rocephin to cover for any possibility of UTI 2. h/o recent pulmonary embolism: Hold Eliquis 3. Hyponatremia: Serum sodium level 130 on 07/25 Saline lock, repeat CMP in the morning to trend serum sodium level GI ppx: not currently indicated DVT ppx: SCDs Code status: Full Prognosis: guarded Disposition: inpatient med surg Time Spent With Patient Time: Total time spent is greater than 50% in coordination of care (as documented) at patient's floor/unit and/or counseling patient: QUALITY VTE Deep Vein Thrombosis/Pulmonary Embolism Present on Admission: No
[2021-07-26] MEDS: ATORVASTATIN 10 MG TABLET PO SCH (21:37)
[2021-07-26] MEDS: TAMSULOSIN 0.4 MG CAPSULE PO SCH (21:37)
[2021-07-26] MEDS: DULoxetine 30 MG CAPSULE PO SCH (21:37)
[2021-07-26] MEDS: SENNOSIDES 1 TABLET PO SCH (21:41)
[2021-07-27] MEDS: 0.9 % SODIUM CHLORIDE 10 ML SYRINGE IV SCH ×3 (04:24→21:52)
[2021-07-27 06:41] LABS: Basophils # (Auto) 0.03 K/mcL (0.00-0.30); Basophils % (Auto) 0.3 % (0.0-2.0); Eosinophils # (Auto) 0.12 K/mcL (0.00-0.70); Eosinophils % (Auto) 1.2 % (0.0-7.0); Hematocrit 25.6 % (40.1-51.0); Hemoglobin 8.3 g/dL (13.7-17.5); Lymphocytes # (Auto) 1.37 K/mcL (1.50-4.80); Lymphocytes % (Auto) 14.1 % (15.5-49.0); Mean Cell Volume 87.4 fL (80.0-100.0); Mean Corpuscular HGB Conc 32.4 g/dL (31.0-36.0); Mean Platelet Volume 10.1 fL (7.4-10.4); Monocytes # (Auto) 0.76 K/mcL (0.10-0.90); Monocytes % (Auto) 7.8 % (1.0-12.0); Neutrophils % (Auto) 76.6 % (38.0-78.0); Platelet Count 212 K/mcL (140-440); RBC 2.93 M/mcL (4.63-6.08); Red Cell Distribution Width 16.7 % (11.5-14.5); WBC 9.8 K/mcL (4.5-11.0)
[2021-07-27 07:28] LABS: ALT/SGPT 7 U/L (<40); AST/SGOT 14 U/L (<40); Albumin 2.9 gm/dL (3.2-5.2); Albumin/Globulin Ratio 1.2 (1.0-2.3); Alkaline Phosphatase 77 U/L (39-117); Bilirubin,Total 0.2 mg/dL (0.1-1.0); Blood Urea Nitrogen 26 mg/dL (8-23); Calcium 8.3 mg/dL (8.6-10.4); Carbon Dioxide 22 mmol/L (22-30); Chloride 96 mmol/L (96-108); Globulin 2.4 gm/dL (2.2-3.7); Glomerular Filtration Rate 79; Glucose 99 mg/dL (70-105)
--- NOTE | 2021-07-27 07:50 | Urology Progress Note ---
SUBJECTIVE Subjective Patient information: Note initiated : 07/27/21 at 7:47 am Service Date, if different from initiated Date: [] Patient: Pancho Ha a 89 y/o M admitted on 07/23/21 for bleeding penis. Chief Complaint: [Gross hematuria] Principal diagnosis: Persistent gross hematuria Interval history: Pancho is an 89-year-old male with a history of hypospadias and gross hematuria. Three-way Dietz catheter was placed and the patient was placed on continuous bladder irrigation. He has been on a slow drip for the past 24 hours and this morning the urine is clear. The patient is currently sitting up in a chair with his hand gripping the catheter. Constitutional Vitals: Vital Signs Temp Pulse Resp BP Pulse Ox 98.2 F 75 18 94/57 96 07/27/21 04:10 07/27/21 04:10 07/27/21 04:10 07/27/21 04:10 07/27/21 04:10 Period Temp Pulse Resp BP Sys/Gomez Pulse Ox Last 24 Hr 96.9 F-98.7 F 65-76 18-22 88-97/52-60 96-98 Intake and Output 07/26/21 07/27/21 07/27/21 21:59 05:59 13:59 Intake Total 6340 6400 3000 Output Total 8700 6980 3400 Balance -2360 -580 -400 Weight 78.698 kg Intake & Output: Intake & Output 07/26/21 07/27/21 07/27/21 21:59 05:59 13:59 Intake Total 6340 6400 3000 Output Total 8700 6980 3400 Balance -2360 -580 -400 Weight 78.698 kg Intake: Oral 340 400 CBI Fluid 6000 6000 3000 Output: Urine Catheter Amount 1100 Void Amount 500 CBI Fluid 7100 6980 3400 Other: Meal Lunch Percent of Meal Consumed 75% Urine Appearance Clear Uretheral (Dietz) Hematuria Urine Color Bright Yellow Uretheral (Dietz) [place] Blood Tinged Urine Odor Normal Uretheral (Dietz) Normal Net CBI 450 30 400 General appearance: average body habitus, cooperative and no acute distress Head Head exam: Present atraumatic, normal inspection and normocephalic Respiratory Respiratory exam: Present normal respiratory exam and CTAB Cardiovascular Cardiovascular exam: Present normal rate and rhythm GI/Abdominal GI/Abdominal exam: Present soft; Absent distended and tenderness Expanded Exam Urine Appearance: Clear Urine Color: Pale A/P Narrative A/P Narrative: Pancho is an 89-year-old male with a history of hypospadias and gross hematuria while on Eliquis for a pulmonary embolism. Anticoagulation was stopped. Continuous bladder irrigation was started after hand irrigation of the catheter. This morning the urine is clear and pale with a slow CBI drip. Continuous bladder irrigation has now been stopped. We will observe the patient today. If the urine remains clear we will remove the Dietz catheter with potential discharge plan for tomorrow. Time Spent With Patient Time: Total time spent is greater than 50% in coordination of care (as documented) at patient's floor/unit and/or counseling patient:
--- NOTE | 2021-07-27 08:08 | Internal Med Progress Note ---
SUBJECTIVE Subjective Patient information: Note initiated : 07/27/21 at 8:05 am Service Date, if different from initiated Date: [] Patient: Pancho Ha 89 y/o M admitted on 07/23/21 for bleeding penis. Chief Complaint: [Gross hematuria] Principal diagnosis: Persistent gross hematuria Interval history: History of present illness: Mr. Ha is a 89 year old M history of pulmonary embolism questionable history on Eliquis, presenting with 2-day history of gross hematuria. There was no prior similar episode. Patient has acute onset gross hematuria over the past 2 days. Patient is unsure whether he is on Eliquis or not before his PE. He is also not sure for how long he has been diagnosed with PE. Patient denies LOC or lightheadedness. Patient denies chest pain or shortness of breath. Denies abdominal or pelvic pain. Due to his symptoms, he presented to our ED for further evaluation and treatments. Vital signs significant for mild tachycardia with heart rate 100s beats per minutes with rest of the vital signs within normal limits. CBC showing H&H 11.9 and 37.0, respectively. Urologist Dr. Paez was consulted who inserted a three-way urinary catheter and also performed cystoscopy with evacuation of about 1 L of fresh blood from his bladder. Continuous bladder irrigations started after the procedures. Admission request made for continuous bladder irrigations as well as frequent monitoring of H&H levels. 07/22: CBI continued, the discharge is now clear. H/H Stable. Denies pelvic or penile pain. Denies SOB. Denies palpitation. Denies chest pain. Denies fever or chills or sweating. 07/23: CBI continued, the discharge is now serosanguineous. Hemoglobin 10.7-->7.9. Denies pelvic or penile pain. Denies SOB. Denies palpitation. Denies chest pain. Denies fever or chills or sweating. c/o bilateral feet numbness. 07/24: CBI continued, the discharge is still serosanguineous. Hemoglobin stable 7.9-->8.2 s/p 1unit pRBC transfusion on 07/23. Denies pelvic or penile pain. Denies SOB. Denies palpitation. Denies chest pain. Denies fever or chills or sweating. 07/25: CBI stopped, 3 way urinary catheter discontinued by Dr. Paez. Hemoglobin 8.2-->7.7. Denies pelvic or penile pain. Denies SOB. Denies palpitation. Denies chest pain. Denies fever or chills or sweating. 07/26: Patient passed 3 large blood clots last night after 3 way catheter was d/c by Dr. Paez. [address] catheter replaced by Dr. Paez. He pulled out the catheter later the night. Dr. Paez replaced the 3 way catheter and ordered CBI. Hemoglobin 7.7-->8.4. 07/27: Hemoglobin 8.4-->8.3. Otherwise no other major overnight events. Denies any pelvic or penile pain. Denies SOB. Denies chest pain. Denies lightheadedness. Constitutional Vitals: Vital Signs Temp Pulse Resp BP Pulse Ox 36.8 C 75 18 94/57 96 07/27/21 04:10 07/27/21 04:10 07/27/21 04:10 07/27/21 04:10 07/27/21 04:10 Period Temp Pulse Resp BP Sys/Gomez Pulse Ox Last 24 Hr 36.1 C-37.1 C 70-76 18-22 88-97/53-60 96-98 Intake and Output 07/26/21 07/27/21 07/27/21 21:59 05:59 13:59 Intake Total 6340 6400 3000 Output Total 8700 6980 3400 Balance -2360 580 -400 Weight 78.698 kg Intake & Output: Intake & Output 07/26/21 07/27/21 07/27/21 21:59 05:59 13:59 Intake Total 6340 6400 3000 Output Total 8700 6980 3400 Balance -2360 -580 -400 Weight 78.698 kg Intake: Oral 340 400 CBI Fluid 6000 6000 3000 Output: Urine Catheter Amount 1100 Void Amount 500 CBI Fluid 7100 6980 3400 Other: Meal Lunch Percent of Meal Consumed 75% Urine Appearance Clear Clear Uretheral (Dietz) Hematuria Urine Color Bright Yellow Pale Uretheral (Dietz) [place] Blood Tinged Urine Odor Normal Uretheral (Dietz) Normal Net CBI 450 30 400 General appearance: cooperative and no acute distress Head Head exam: Present atraumatic and normocephalic Eye Eye exam: Present EOMI and PERRL ENT ENT exam: Present mucous membranes moist, normal exam and normal external ear exam Neck Neck exam: Present normal inspection; Absent lymphadenopathy, tenderness and thy romegaly Respiratory Respiratory exam: Absent accessory muscle use, respiratory distress and wheezes Cardiovascular Cardiovascular exam: Present normal rate and rhythm; Absent JVD GI/Abdominal GI/Abdominal exam: Present normal bowel sounds and soft; Absent organomegaly and tenderness Rectal Rectal exam: Present deferred Additional comments: 3 [address] Extremities Exam Extremities exam: Present full ROM, normal capillary refill and normal inspection; Absent tenderness Neurological Exam Neurological exam: Present alert, CN II-XII intact and oriented X3; Absent motor sensory deficit Psychiatric Psychiatric exam: Present normal affect and normal mood; Absent anxious and depr essed Skin Skin exam: Present dry and intact OBJ DATA Labs CBC & Chem 7: 07/27/21 05:33 07/27/21 05:33 Labs: Abnormal Lab Results 07/27/21 07/27/21 07/26/21 05:33 05:33 05:42 WBC RBC 2.93 L Hgb 8.3 L Hct 25.6 L MCHC RDW 16.7 H MPV Neut % (Auto) Lymph % (Auto) 14.1 L Lymph # (Auto) 1.37 L Absolute Neutrophils Sodium 131 L 131 L Carbon Dioxide 21 L BUN 26 H 28 H Glucose Calcium 8.3 L Total Protein 5.3 L 5.5 L Albumin 2.9 L 3.1 L Globulin Testosterone Level 2.69 L 07/26/21 07/25/21 07/25/21 05:42 05:39 05:39 WBC 11.4 H RBC 2.96 L 2.73 L Hgb 8.4 L 7.7 L Hct 26.3 L 24.1 L MCHC RDW 16.8 H 16.4 H MPV 10.5 H 10.6 H Neut % (Auto) 79.5 H Lymph % (Auto) 14.0 L 11.7 L Lymph # (Auto) 1.33 L Absolute Neutrophils 8.31 H 9.08 H Sodium 130 L Carbon Dioxide BUN 29 H Glucose Calcium 8.3 L Total Protein 5.1 L Albumin 3.0 L Globulin 2.1 L Testosterone Level 07/24/21 07/24/21 07:03 07:03 WBC RBC 2.98 L Hgb 8.2 L Hct 26.5 L MCHC 30.9 L RDW 16.0 H MPV 10.9 H Neut % (Auto) 87.7 H Lymph % (Auto) 7.6 L Lymph # (Auto) 0.69 L Absolute Neutrophils Sodium Carbon Dioxide BUN Glucose 136 H Calcium 8.4 L Total Protein 5.4 L Albumin Globulin Testosterone Level Meds: Medications Acetaminophen (Acetaminophen 325 Mg Tablet) 650 mg PO Q6HP PRN; Protocol PRN Reason: Per Pain Protocol/Fever > 101 Last Admin: 07/25/21 13:30 Dose: 650 mg Documented by: Atorvastatin Calcium (Atorvastatin 10 Mg Tablet) 10 mg PO HS [facility] Last Admin: 07/26/21 21:37 Dose: 10 mg Documented by: Bicalutamide (Bicalutamide 50 Mg Tablet) 50 mg PO DAILY [facility] Last Admin: 07/26/21 08:37 Dose: 50 mg Documented by: Bisacodyl (Bisacodyl 10 Mg Supp.Rect) 10 mg [place] DAILYP PRN PRN Reason: Constipation Ceftriaxone Sodium (Ceftriaxone 1 Gm Vial) 1 gm IV DAILY [facility] Last Admin: 07/26/21 08:37 Dose: 1 gm Documented by: Docusate Sodium (Docusate Sodium 100 Mg Capsule) 100 mg PO BID [facility] Last Admin: 07/26/21 21:38 Dose: Not Given Documented by: Duloxetine HCl (Duloxetine 30 Mg Capsule) 30 mg PO HS [facility] Last Admin: 07/26/21 21:37 Dose: 30 mg Documented by: Finasteride (Finasteride 5 Mg Tablet) 5 mg PO DAILY [facility] Last Admin: 07/26/21 08:38 Dose: 5 mg Documented by: Fluticasone Propionate (Fluticasone Hfa 220mcg Inhaler) 1 puff INH BID [facility] Last Admin: 07/26/21 21:38 Dose: Not Given Documented by: Furosemide (Furosemide 40 Mg Tablet) 40 mg PO DAILY [facility] Last Admin: 07/26/21 08:38 Dose: 40 mg Documented by: Guaifenesin (Guaifenesin 600 Mg Tab.Sr.12h) 600 mg PO BID [facility] Last Admin: 07/26/21 21:37 Dose: 600 mg Documented by: Lidocaine HCl (Lidocaine Jel 2% 1 Tube 5ml) 1 dose TOPICAL Q6HP PRN PRN Reason: PAINFUL URINATION Lisinopril (Lisinopril 2.5 Mg Tablet) 2.5 mg PO DAILY [facility] Last Admin: 07/26/21 08:38 Dose: 2.5 mg Documented by: Lorazepam (Lorazepam 2 Mg/Ml Vial) 0.5 mg IV Q4-6HP PRN PRN Reason: ANXIETY/SEDATION Metoprolol Succinate (Metoprolol Succinate 50 Mg Tab.Xl.24h) 50 mg PO DAILY [facility] Last Admin: 07/26/21 08:37 Dose: 50 mg Documented by: Morphine Sulfate (Morphine 4 Mg/Ml Vial) 4 mg IV Q4HP PRN; Protocol PRN Reason: Per Pain Protocol Last Admin: 07/25/21 20:48 Dose: 4 mg Documented by: Ondansetron HCl (Ondansetron 4 Mg/2 Ml Vial) 4 mg IV Q6HP PRN PRN Reason: Nausea And Vomiting Oxybutynin Chloride (Oxybutynin Chloride 5 Mg Tab.Xl.24h) 10 mg PO DAILY [facility] Last Admin: 07/26/21 08:38 Dose: 10 mg Documented by: Oxycodone HCl (Oxycodone Hcl 5 Mg Tablet) 5 mg PO Q4HP PRN; Protocol PRN Reason: Per Pain Protocol Solifenacin ( Vesicare) 5 Mg Tablet 1 dose PO DAILY [facility] Last Admin: 07/26/21 08:38 Dose: Not Given Documented by: Senna (Sennosides 1 Tablet) 2 tab PO [facility] Last Admin: 07/26/21 21:41 Dose: Not Given Documented by: Sodium Chloride (0.9 % Sodium Chloride 10 Ml Syringe) 10 ml IV Q8 [facility] Last Admin: 07/27/21 04:24 Dose: 10 ml Documented by: Spironolactone (Spironolactone 25 Mg Tablet) 25 mg PO DAILY [facility] Last Admin: 07/26/21 08:38 Dose: 25 mg Documented by: Tamsulosin HCl (Tamsulosin 0.4 Mg Capsule) 0.4 mg PO HS [facility] Last Admin: 07/26/21 21:37 Dose: 0.4 mg Documented by: Zolpidem Tartrate (Zolpidem 5 Mg Tablet) 5 mg PO HSP PRN PRN Reason: Insomnia A/P Assessment and plan (1) Anemia, normocytic normochromic: Status: Acute (2) Pulmonary embolism: Status: Acute (3) Gross hematuria: Status: Acute (4) Hyponatremia: Status: Acute Narrative A/P Narrative: Assessment and Plans: 1. Gross hematuria with associated anemia: DDx: Secondary to anticoagulant therapy vs. UTI vs. malignancy Stays in inpatient med surg Urologist Dr. Paez in the case, recs. appreciated, s/p 2 rounds of cystoscopy and evacuation of blood and clot Stop CBI. Consider d/c 3 way catheter later today Oxycodone PRN moderate pain Morphine IV PRN severe pain Lidocaine gel topical PRN penile pain cbc w/ auto diff daily to trend H/H, transfuse if H/H drops fast or symptomatic; s/p pRCB transfusion 1 unit on 07/23 Rocephin to cover for any possibility of UTI 2. h/o recent pulmonary embolism: Hold Eliquis 3. Hyponatremia: Serum sodium level 131 on 07/27 Saline lock, repeat CMP in the morning to trend serum sodium level GI ppx: not currently indicated DVT ppx: SCDs Code status: Full Prognosis: guarded Disposition: inpatient med surg Time Spent With Patient Time: Total time spent is greater than 50% in coordination of care (as documented) at patient's floor/unit and/or counseling patient: QUALITY VTE Deep Vein Thrombosis/Pulmonary Embolism Present on Admission: No
[2021-07-27] MEDS: cefTRIAXone 1 GM VIAL IV SCH (10:26)
[2021-07-27] MEDS: OXYBUTYNIN CHLORIDE 5 MG TAB.XL.24H PO SCH (10:27)
[2021-07-27] MEDS: FINASTERIDE 5 MG TABLET PO SCH (10:27)
[2021-07-27] MEDS: FUROSEMIDE 40 MG TABLET PO SCH (10:27)
[2021-07-27] MEDS: guaiFENesin 600 MG TAB.SR.12H PO SCH ×2 (10:42→21:50)
[2021-07-27] MEDS: METOPROLOL SUCCINATE 50 MG TAB.XL.24H PO SCH (10:42)
[2021-07-27] MEDS: SPIRONOLACTONE 25 MG TABLET PO SCH (11:03)
[2021-07-27] MEDS: LISINOPRIL 2.5 MG TABLET PO SCH (11:04)
[2021-07-27] MEDS: SOLIFENACIN 5 MG PO SCH (11:04)
[2021-07-27] MEDS: FLUTICASONE HFA 220MCG INHALER INH SCH ×2 (11:06→21:52)
--- NOTE | 2021-07-27 14:02 | Internal Med Progress Note ---
SUBJECTIVE Subjective Patient information: Note initiated : 07/27/21 at 2:02 pm Service Date, if different from initiated Date: [] Patient: Pancho Ha 89 y/o M admitted on 07/23/21 for bleeding penis. Chief Complaint: [] Principal diagnosis: Persistent gross hematuria Interval history: History of present illness: Mr. Ha is a 89 year old M history of pulmonary embolism questionable history on Eliquis, presenting with 2-day history of gross hematuria. There was no prior similar episode. Patient has acute onset gross hematuria over the past 2 days. Patient is unsure whether he is on Eliquis or not before his PE. He is also not sure for how long he has been diagnosed with PE. Patient denies LOC or lightheadedness. Patient denies chest pain or shortness of breath. Denies abdominal or pelvic pain. Due to his symptoms, he presented to our ED for further evaluation and treatments. Vital signs significant for mild tachycardia with heart rate 100s beats per minutes with rest of the vital signs within normal limits. CBC showing H&H 11.9 and 37.0, respectively. Urologist Dr. Paez was consulted who inserted a three-way urinary catheter and also performed cystoscopy with evacuation of about 1 L of fresh blood from his bladder. Continuous bladder irrigations started after the procedures. Admission request made for continuous bladder irrigations as well as frequent monitoring of H&H levels. 07/22: CBI continued, the discharge is now clear. H/H Stable. Denies pelvic or penile pain. Denies SOB. Denies palpitation. Denies chest pain. Denies fever or chills or sweating. 07/23: CBI continued, the discharge is now serosanguineous. Hemoglobin 10.7-->7.9. Denies pelvic or penile pain. Denies SOB. Denies palpitation. Denies chest pain. Denies fever or chills or sweating. c/o bilateral feet numbness. 07/24: CBI continued, the discharge is still serosanguineous. Hemoglobin stable 7.9-->8.2 s/p 1unit pRBC transfusion on 07/23. Denies pelvic or penile pain. Denies SOB. Denies palpitation. Denies chest pain. Denies fever or chills or sweating. 07/25: CBI stopped, 3 way urinary catheter discontinued by Dr. Paez. Hemoglobin 8.2-->7.7. Denies pelvic or penile pain. Denies SOB. Denies palpitation. Denies chest pain. Denies fever or chills or sweating. 07/26: Patient passed 3 large blood clots last night after 3 way catheter was d/c by Dr. aPez. [address] catheter replaced by Dr. Paez. He pulled out the catheter later the night. Dr. Paez replaced the 3 way catheter and ordered CBI. Hemoglobin 7.7-->8.4. 07/27: Hemoglobin 8.4-->8.3. Otherwise no other major overnight events. Denies any pelvic or penile pain. Denies SOB. Denies chest pain. Denies lightheadedness. Constitutional Vitals: Vital Signs Temp Pulse Resp BP Pulse Ox 98.1 F 71 22 86/54 97 07/27/21 12:00 07/27/21 12:00 07/27/21 08:00 07/27/21 12:00 07/27/21 12:00 Period Temp Pulse Resp BP Sys/Gomez Pulse Ox Last 24 Hr 98.1 F-98.7 F 70-93 18-22 86-97/53-60 96-98 Intake and Output 07/27/21 07/27/21 07/27/21 05:59 13:59 21:59 Intake Total 6400 3000 Output Total 6980 3400 Balance -580 -400 Intake & Output: Intake & Output 07/27/21 07/27/21 07/27/21 05:59 13:59 21:59 Intake Total 6400 3000 Output Total 6980 3400 Balance -580 -400 Intake: Oral 400 CBI Fluid 6000 3000 Output: CBI Fluid 6980 3400 Other: Urine Appearance Clear Urine Color Pale Uretheral (Dietz) Blood Tinged Net CBI 30 400 Exam: General: Alert, Awake, No acute Distress Eyes/N/T: EOMI, Head/Neck: neck supple, CV: RRR, No murmurs, Pulm: Clear b/l, no wheezing/rhonchi/rales Abd: soft, nontender, +BS x4 Ext: no clubbing/cyanosis/edema Neuro: Alert, no focal deficits, moves all extremities, Skin: warm/dry OBJ DATA Labs CBC & Chem 7: 07/27/21 05:33 07/27/21 05:33 Labs: Abnormal Lab Results 07/27/21 07/27/21 07/26/21 05:33 05:33 05:42 WBC RBC 2.93 L Hgb 8.3 L Hct 25.6 L RDW 16.7 H MPV Neut % (Auto) Lymph % (Auto) 14.1 L Lymph # (Auto) 1.37 L Absolute Neutrophils Sodium 131 L 131 L Carbon Dioxide 21 L BUN 26 H 28 H Calcium 8.3 L Total Protein 5.3 L 5.5 L Albumin 2.9 L 3.1 L Globulin Testosterone Level 2.69 L 07/26/21 07/25/21 07/25/21 05:42 05:39 05:39 WBC 11.4 H RBC 2.96 L 2.73 L Hgb 8.4 L 7.7 L Hct 26.3 L 24.1 L RDW 16.8 H 16.4 H MPV 10.5 H 10.6 H Neut % (Auto) 79.5 H Lymph % (Auto) 14.0 L 11.7 L Lymph # (Auto) 1.33 L Absolute Neutrophils 8.31 H 9.08 H Sodium 130 L Carbon Dioxide BUN 29 H Calcium 8.3 L Total Protein 5.1 L Albumin 3.0 L Globulin 2.1 L Testosterone Level Meds: Medications Acetaminophen (Acetaminophen 325 Mg Tablet) 650 mg PO Q6HP PRN; Protocol PRN Reason: Per Pain Protocol/Fever > 101 Last Admin: 07/25/21 13:30 Dose: 650 mg Documented by: Atorvastatin Calcium (Atorvastatin 10 Mg Tablet) 10 mg PO [facility] Last Admin: 07/26/21 21:37 Dose: 10 mg Documented by: Bicalutamide (Bicalutamide 50 Mg Tablet) 50 mg PO DAILY PENDING SALE TO [facility] Last Admin: 07/26/21 08:37 Dose: 50 mg Documented by: Bisacodyl (Bisacodyl 10 Mg Supp.Rect) 10 mg WI DAILYP PRN PRN Reason: Constipation Ceftriaxone Sodium (Ceftriaxone 1 Gm Vial) 1 gm IV DAILY PEND[facility] SALE TO [facility] Last Admin: 07/27/21 10:26 Dose: 1 gm Documented by: Docusate Sodium (Docusate Sodium 100 Mg Capsule) 100 mg PO BID PEND[facility] SALE TO [facility] Last Admin: 07/26/21 21:38 Dose: Not Given Documented by: Duloxetine HCl (Duloxetine 30 Mg Capsule) 30 mg PO [facility] Last Admin: 07/26/21 21:37 Dose: 30 mg Documented by: Finasteride (Finasteride 5 Mg Tablet) 5 mg PO DAILY [facility] S[facility] TO [facility] Last Admin: 07/27/21 10:27 Dose: 5 mg Documented by: Fluticasone Propionate (Fluticasone Hfa 220mcg Inhaler) 1 puff INH BID [facility] TO [facility] Last Admin: 07/27/21 11:06 Dose: Not Given Documented by: Furosemide (Furosemide 40 Mg Tablet) 40 mg PO DAILY [facility] Last Admin: 07/27/21 10:27 Dose: 40 mg Documented by: Guaifenesin (Guaifenesin 600 Mg Tab.Sr.12h) 600 mg PO BID [facility] Last Admin: 07/27/21 10:42 Dose: 600 mg Documented by: Lidocaine HCl (Lidocaine Jel 2% 1 Tube 5ml) 1 dose TOPICAL Q6HP PRN PRN Reason: PAINFUL URINATION Lisinopril (Lisinopril 2.5 Mg Tablet) 2.5 mg PO DAILY [facility] Last Admin: 07/27/21 11:04 Dose: Not Given Documented by: Lorazepam (Lorazepam 2 Mg/Ml Vial) 0.5 mg IV Q4-6HP PRN PRN Reason: ANXIETY/SEDATION Metoprolol Succinate (Metoprolol Succinate 50 Mg Tab.Xl.24h) 50 mg PO DAILY [facility] Last Admin: 07/27/21 10:42 Dose: 50 mg Documented by: Morphine Sulfate (Morphine 4 Mg/Ml Vial) 4 mg IV Q4HP PRN; Protocol PRN Reason: Per Pain Protocol Last Admin: 07/25/21 20:48 Dose: 4 mg Documented by: Ondansetron HCl (Ondansetron 4 Mg/2 Ml Vial) 4 mg IV Q6HP PRN PRN Reason: Nausea And Vomiting Oxybutynin Chloride (Oxybutynin Chloride 5 Mg Tab.Xl.24h) 10 mg PO DAILY [facility] Last Admin: 07/27/21 10:27 Dose: 10 mg Documented by: Oxycodone HCl (Oxycodone Hcl 5 Mg Tablet) 5 mg PO Q4HP PRN; Protocol PRN Reason: Per Pain Protocol Solifenacin ( Vesicare) 5 Mg Tablet 1 dose PO DAILY [facility] Last Admin: 07/27/21 11:04 Dose: Not Given Documented by: Senna (Sennosides 1 Tablet) 2 tab PO [facility] Last Admin: 07/26/21 21:41 Dose: Not Given Documented by: Sodium Chloride (0.9 % Sodium Chloride 10 Ml Syringe) 10 ml IV Q8 [facility] Last Admin: 07/27/21 04:24 Dose: 10 ml Documented by: Spironolactone (Spironolactone 25 Mg Tablet) 25 mg PO DAILY [facility] Last Admin: 07/27/21 11:03 Dose: Not Given Documented by: Tamsulosin HCl (Tamsulosin 0.4 Mg Capsule) 0.4 mg PO HS [facility]END[facility] SALE [facility] Last Admin: 07/26/21 21:37 Dose: 0.4 mg Documented by: Zolpidem Tartrate (Zolpidem 5 Mg Tablet) 5 mg PO HSP PRN PRN Reason: Insomnia A/P Narrative A/P Narrative: A: *Gross hematuria with associated blood loss anemia: -DDx: Secondary to anticoagulant therapy vs. UTI vs. malignancy -Urologist s/p 2 rounds of cystoscopy and evacuation of blood and clot *h/o recent pulmonary embolism: *Hyponatremia: Serum sodium level 131 on 07/27 P: -when was diagonesed with PE -per urology -Rocephin to cover for any possibility of UTI -Hold Eliquis for now -ppx: SCDs Code status: Traffic Clerk Spent With Patient Time: Total time spent is greater than 50% in coordination of care (as documented) at patient's floor/unit and/or counseling patient: [facility]AL[facility] VTE Deep Vein Thrombosis/Pulmonary Embolism Present on Admission: No
--- NOTE | 2021-07-27 14:21 | Discharge Summary ---
Discharge Provider Provider Patient information: Note initiated : 07/27/21 at 2:20 pm Service Date, if different from initiated Date: [] Patient: Pancho Ha 89 y/o M admitted on 07/23/21 for bleeding penis. Chief Complaint: [] Date of admission: 07/23/21 16:00 Discharge date: 07/29/21 Primary care physician: [facility] Consults: 07/21/21 Consult to Physician [CONS] Stat Comment: Consulting Provider: Ulysses Paez Reason For Exam: Physician to Consult Consult to Physician [CONS] Stat Comment: Consulting Provider: Macho Andrew Reason For Exam: Physician to Consult Discharge Meds Discharge Medications Home Medications Dulcolax (bisacodyl) 10 mg CA PRN PRN 07/22/21 [History Confirmed 07/22/21 Last Taken 07/12/21 06:40] acetaminophen 650 mg PO Q4HP PRN MDD 3000mg 07/22/21 [History Confirmed 07/22/21 Last Taken Unknown] atorvastatin 10 mg PO HS 07/22/21 [History Confirmed 07/22/21 Last Taken 07/20/21 20:00] duloxetine 30 mg PO HS 07/22/21 [History Confirmed 07/22/21 Last Taken 07/20/21 20:00] fluticasone propionate 1 puff PO BID 07/22/21 [History Confirmed 07/22/21 Last Taken 07/20/21 20:00] guaifenesin 600 mg PO BID 07/22/21 [History Confirmed 07/22/21 Last Taken 20:00] metoprolol succinate [Toprol XL] 12.5 mg PO QDAY #30 tab 07/29/21 [Rx Last Taken Unknown] COURSE Hospital Course Hospital course: Principal diagnosis: Persistent gross hematuria Interval history: History of present illness: Mr. Ha is a 89 year old M history of pulmonary embolism questionable history on Eliquis, presenting with 2-day history of gross hematuria. There was no prior similar episode. Patient has acute onset gross hematuria over the past 2 days. Patient is unsure whether he is on Eliquis or not before his PE. He is also not sure for how long he has been diagnosed with PE. Patient denies LOC or lightheadedness. Patient denies chest pain or shortness of breath. Denies abdominal or pelvic pain. Due to his symptoms, he presented to our ED for further evaluation and treatments. Vital signs significant for mild tachycardia with heart rate 100s beats per minutes with rest of the vital signs within normal limits. CBC showing H&H 11.9 and 37.0, respectively. Urologist Dr. Paez was consulted who inserted a three-way urinary catheter and also performed cystoscopy with evacuation of about 1 L of fresh blood from his bladder. Continuous bladder irrigations started after the procedures. Admission request made for continuous bladder irrigations as well as frequent monitoring of H&H levels. 07/22: CBI continued, the discharge is now clear. H/H Stable. Denies pelvic or penile pain. Denies SOB. Denies palpitation. Denies chest pain. Denies fever or chills or sweating. 07/23: CBI continued, the discharge is now serosanguineous. Hemoglobin 10.7-->7.9. Denies pelvic or penile pain. Denies SOB. Denies palpitation. Denies chest pain. Denies fever or chills or sweating. c/o bilateral feet numbness. 07/24: CBI continued, the discharge is still serosanguineous. Hemoglobin stable 7.9-->8.2 s/p 1unit pRBC transfusion on 07/23. Denies pelvic or penile pain. Denies SOB. Denies palpitation. Denies chest pain. Denies fever or chills or sweating. 07/25: CBI stopped, 3 way urinary catheter discontinued by Dr. Paez. Hemoglobin 8.2-->7.7. Denies pelvic or penile pain. Denies SOB. Denies palpitation. Denies chest pain. Denies fever or chills or sweating. 07/26: Patient passed 3 large blood clots last night after 3 way catheter was d/c by Dr. Paez. [address] catheter replaced by Dr. Paez. He pulled out the catheter later the night. Dr. Paez replaced the 3 way catheter and ordered CBI. Hemoglobin 7.7-->8.4. 07/27: Hemoglobin 8.4-->8.3. Otherwise no other major overnight events. Denies any pelvic or penile pain. Denies SOB. Denies chest pain. Denies lightheadedness. 07/28 Yesterday Dietz became clotted off Dr. Lopez replaced it. Patient felt a little lightheaded at one-point but otherwise no complaints. 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 He was admitted and discharged on the on Eliquis. 07/29 No overnight event or new complaints. Patient will be discharged home to follow-up with urology. Anticoagulation discussed with urologist, patient will be remain off anticoagulation until follow up with urologist then will determine restarting. A/P Narrative: A: *Gross hematuria with associated acute blood loss anemia: -DDx: Secondary to anticoagulant therapy vs. UTI vs. malignancy -Urologist s/p 2 rounds of cystoscopy and evacuation of blood and clot -H&H stable *h/o recent pulmonary embolism May 22 and started on eliquis: *Hyponatremia: improved *HTN: on Toprol/ACEI/aldactone/lasix *Dementia: Discharge diagnosis: Gross hematuria blood loss anemia history of PE hyponatremia Time Spent with Patient Time attestation: Total time spent providing and/or coordinating discharge services: Time spent: Greater than 30 minutes EXAM Constitutional Vitals: Temp Pulse Resp BP Pulse Ox 98.1 F 71 22 86/54 97 07/27/21 12:00 07/27/21 12:00 07/27/21 08:00 07/27/21 12:00 07/27/21 12:00 Discharge Data Data Completed and Pending Labs on day of discharge: Labs from last 24 hours 07/27/21 07/27/21 05:33 05:33 WBC 9.8 RBC 2.93 L Hgb 8.3 L Hct 25.6 L MCV 87.4 MCH 28.3 MCHC 32.4 RDW 16.7 H Plt Count 212 MPV 10.1 Neut % (Auto) 76.6 Lymph % (Auto) 14.1 L [place] % (Auto) 7.8 Eos % (Auto) 1.2 Baso % (Auto) 0.3 Lymph # (Auto) 1.37 L [place] # (Auto) 0.76 Eos # (Auto) 0.12 Baso # (Auto) 0.03 Absolute Neutrophils 7.47 Sodium 131 L Potassium 4.0 Chloride 96 Carbon Dioxide 22 Anion Gap 13.0 BUN 26 H Creatinine 0.8 GFR Calculation 79 Glucose 99 Calcium 8.3 L Total Bilirubin 0.2 AST 14 ALT 7 Alkaline Phosphatase 77 Total Protein 5.3 L Albumin 2.9 L Globulin 2.4 Albumin/Globulin Ratio 1.2 Discharge Plan Patient/Caregiver Discharge Instructions Activity: increase activity as tolerated Diet: Regular Diet Activity Restrictions/Additional Instructions: Hold Eliquis for 1-week until seen by Urology in follow-up. Decreased beta-giovanny and stopped ACEI & diuretics for low blood pressure. Patient to monitor blood pressure twice daily and bring log to PCP Prescriptions: New metoprolol succinate [Toprol XL] 25 mg tablet extended release 24 hr 12.5 mg PO QDAY Qty: 30 RF: 0 Continued atorvastatin 10 mg Tablet 10 mg PO HS RF: 0 duloxetine 30 mg PO HS RF: 0 fluticasone propionate 1 puff PO BID RF: 0 guaifenesin 600 mg PO BID RF: 0 acetaminophen 650 mg PO Q4HP MDD 3000mg PRN (Reason: Pain) RF: 0 Dulcolax (bisacodyl) 10 mg CA PRN PRN (Reason: Constipation) RF: 0 Discontinued furosemide 40 mg PO QDAY RF: 0 lisinopril 2.5 mg PO QDAY RF: 0 spironolactone 25 mg PO QDAY RF: 0 Toprol XL 50 mg PO QDAY RF: 0 Follow Up Plan Follow up with: Jonas Lopez MD [Physician] - (Please call and schedule a one week follow up with Dr Lopez) Patient Disposition: Xfer SNF Prognosis: Fair Rehab Potential: Fair I certify that the patient requires SNF services: Yes Overall status at discharge: patient is progressing back to baseline Discharge Orders: Discharge Order (Routine); Ordered 07/29/21 Ordered By: Gerry Sun [facility] VTE Deep Vein Thrombosis/Pulmonary Embolism Present on Admission: No
--- NOTE | 2021-07-27 18:36 | Urology Progress Note ---
SUBJECTIVE Subjective Patient information: Note initiated : 07/27/21 at 6:33 pm Service Date, if different from initiated Date: [] Patient: Pancho Ha a 89 y/o M admitted on 07/23/21 for bleeding penis. Chief Complaint: [] Principal diagnosis: Persistent gross hematuria Interval history: Pancho is an 89-year-old male who developed recurrent gross hematuria after stopping CBI this morning. Constitutional Vitals: Vital Signs Temp Pulse Resp BP Pulse Ox 98.1 F 71 22 86/54 97 07/27/21 12:00 07/27/21 12:00 07/27/21 08:00 07/27/21 12:00 07/27/21 12:00 Period Temp Pulse Resp BP Sys/Gomez Pulse Ox Last 24 Hr 98.1 F-98.7 F 71-93 18-22 86-107/50-60 96-98 Intake and Output 07/27/21 07/27/21 07/27/21 05:59 13:59 21:59 Intake Total 6400 3000 400 Output Total 6980 3400 800 Balance -580 -400 -400 Intake & Output: Intake & Output 07/27/21 07/27/21 07/27/21 05:59 13:59 21:59 Intake Total 6400 3000 400 Output Total 6980 3400 800 Balance -580 -400 -400 Intake: Oral 400 400 CBI Fluid 6000 3000 Output: Urine Catheter Amount 800 CBI Fluid 6980 3400 Other: Meal Lunch Percent of Meal Consumed 75% Urine Appearance Clear Hematuria Urine Color Pale Dark Red Blood Tinged Uretheral (Dietz) Blood Tinged Bright Red Blood Tinged Net CBI 30 400 Expanded Exam Urine Appearance: Clear Urine Color: Dark Red A/P Narrative A/P Narrative: Pancho developed recurrent gross hematuria after stopping continuous bladder irrigation this morning. I came to the bedside attempted to hand irrigate the catheter and could not pull anything out. I therefore removed the catheter and replaced it with a 24 Ghanaian two-way catheter. I used a specific hematuria catheter immediately drained approximately 500 mL of dark red urine. I then hand irrigated the catheter and removed approximately 75 to 100 mL of dark red clot. After this urine irrigated more freely and the remaining urine appeared to be a light dark pink color. I decided to not use continuous bladder irrigation, but rather leaving the 24 Ghanaian two-way catheter which is 20 mL of sterile water in the balloon. We will start him on IV fluids overnight instead of irrigation. The catheter can be hand irrigated as needed. If there are any problems nursing will give me a call. I will keep him n.p.o. after midnight in case the hematuria recurs and we will then discuss going to the operating room tomorrow for recurrent fulguration. Time Spent With Patient Time: Total time spent is greater than 50% in coordination of care (as documented) at patient's floor/unit and/or counseling patient: Total time spent with greater than 50% in coordination of care (as documented) at patient's floor/unit and/or counseling patient:: 25 - 35 minutes
[2021-07-27] MEDS: morphine 4 MG/ML VIAL IV PRN ×2 (18:43→22:49)
[2021-07-27] MEDS: DEXTROSE 5%-1/2NS 1,000 ML IV SCH (18:43)
[2021-07-27] MEDS: BICALUTAMIDE 50 MG TABLET PO SCH (19:00)
[2021-07-27] MEDS: DOCUSATE SODIUM 100 MG CAPSULE PO SCH ×2 (19:00→21:50)
[2021-07-27] MEDS: ATORVASTATIN 10 MG TABLET PO SCH (21:50)
[2021-07-27] MEDS: DULoxetine 30 MG CAPSULE PO SCH (21:50)
[2021-07-27] MEDS: SENNOSIDES 1 TABLET PO SCH (21:50)
[2021-07-27] MEDS: TAMSULOSIN 0.4 MG CAPSULE PO SCH (21:50)
[2021-07-28] MEDS: morphine 4 MG/ML VIAL IV PRN (02:25)
[2021-07-28] MEDS: 0.9 % SODIUM CHLORIDE 10 ML SYRINGE IV SCH ×3 (06:13→21:25)
[2021-07-28 06:41] LABS: Basophils # (Auto) 0.03 K/mcL (0.00-0.30); Basophils % (Auto) 0.2 % (0.0-2.0); Eosinophils # (Auto) 0.09 K/mcL (0.00-0.70); Eosinophils % (Auto) 0.7 % (0.0-7.0); Hematocrit 25.9 % (40.1-51.0); Hemoglobin 8.3 g/dL (13.7-17.5); Lymphocytes # (Auto) 1.33 K/mcL (1.50-4.80); Lymphocytes % (Auto) 10.3 % (15.5-49.0); Mean Cell Volume 87.5 fL (80.0-100.0); Mean Platelet Volume 10.5 fL (7.4-10.4); Monocytes # (Auto) 1.04 K/mcL (0.10-0.90); Monocytes % (Auto) 8.1 % (1.0-12.0); Neutrophils % (Auto) 80.7 % (38.0-78.0); Platelet Count 234 K/mcL (140-440); RBC 2.96 M/mcL (4.63-6.08); Red Cell Distribution Width 16.7 % (11.5-14.5); WBC 12.9 K/mcL (4.5-11.0)
--- NOTE | 2021-07-28 07:19 | Urology Progress Note ---
SUBJECTIVE Subjective Patient information: Note initiated : 07/28/21 at 7:12 am Service Date, if different from initiated Date: [] Patient: Pancho Ha 89 y/o M admitted on 07/23/21 for bleeding penis. Chief Complaint: [Gross hematuria] Principal diagnosis: Persistent gross hematuria Interval history: Yesterday afternoon I placed a to a 24 Polish catheter and irrigated clots in the bladder. Overnight the urine has remained clear and a light dark red consistent with old blood. There are no significant clots in the tubing. The patient is currently comfortable. He remains on oxybutynin extended release 10 mg daily as well as on tamsulosin. He reports that he had no difficulty with urination prior to coming to the hospital other than the hematuria. Constitutional Vitals: Vital Signs Temp Pulse Resp BP Pulse Ox 97.5 F 71 18 92/51 95 07/28/21 02:42 07/28/21 02:42 07/28/21 02:42 07/28/21 02:42 07/28/21 02:42 Period Temp Pulse Resp BP Sys/Gomez Pulse Ox Last 24 Hr 97.5 F-99.0 F 66-93 18-22 86-107/50-58 90-98 Intake and Output 07/27/21 07/28/21 07/28/21 21:59 05:59 13:59 Intake Total 1600 600 Output Total 2450 450 Balance -850 600 -450 Weight 77.065 kg Intake & Output: Intake & Output 07/27/21 07/28/21 07/28/21 21:59 05:59 13:59 Intake Total 1600 600 Output Total 2450 450 Balance -850 600 -450 Weight 77.065 kg Intake: Oral 400 600 CBI Fluid 1200 Output: Urine Catheter Amount 800 450 CBI Fluid 1650 Other: Meal Lunch Percent of Meal Consumed 75% Urine Appearance Clear Small Blood Clots Uretheral (Dietz) Small Blood Clots Clear Urine Color [place] Dark Red Blood Tinged Uretheral (Dietz) Bright Red Bright Red Net CBI 450 General appearance: average body habitus, cooperative and no acute distress Respiratory Respiratory exam: Present normal respiratory exam and CTAB Cardiovascular Cardiovascular exam: Present normal rate and rhythm GI/Abdominal GI/Abdominal exam: Present soft; Absent distended and tenderness exam: Absent circumcision Additional comments: Patient with hypospadias. 24 Polish two-way Dietz catheter in place. Expanded Exam Urine Appearance: Clear Urine Color: Dark Red A/P Narrative A/P Narrative: Pancho is an 89-year-old male with dementia and hypospadias. He presented to the hospital with gross hematuria and was taken to the operating r oom for fulguration of bleeding. After that he pulled his Dietz catheter and developed bleeding again and a Dietz catheter was replaced. Yesterday this catheter became clogged. Clots were irrigated from the bladder after replacing the three-way Dietz catheter with a 24 Polish three-way hematuria catheter. This remains in place and is draining clear dark urine consistent with old blood. The patient cannot go home with a Dietz catheter. The urine looks better without CBI and for this reason we are going to perform a voiding trial and remove the catheter. We will check his postvoid residual after his first 3 voids to ensure that he is not developing retention. He has not urinated in 4 hours we will also residual or if he feels uncomfortable at any time. I will stop his oxybutynin 10 mg extended release and we will continue the tamsulosin. The patient remains n.p.o. we will keep him n.p.o. until we are certain that he can void. If he cannot void he should be able to go home without the Dietz catheter. If he cannot void I will consider returning to the operating room for repeat cystoscopy, evacuation of clot and fulguration of bleeding. Time Spent With Patient Time: Total time spent is greater than 50% in coordination of care (as documented) at patient's floor/unit and/or counseling patient: Total time spent with greater than 50% in coordination of care (as documented) at patient's floor/unit and/or counseling patient:: 15 - 24 minutes
[2021-07-28 07:37] LABS: Blood Urea Nitrogen 25 mg/dL (8-23); Calcium 8.5 mg/dL (8.6-10.4); Carbon Dioxide 26 mmol/L (22-30); Chloride 96 mmol/L (96-108); Glomerular Filtration Rate 79; Glucose 106 mg/dL (70-105)
--- NOTE | 2021-07-28 07:44 | Internal Med Progress Note ---
SUBJECTIVE Subjective Patient information: Note initiated : 07/28/21 at 7:38 am Service Date, if different from initiated Date: [] Patient: Pancho Ha 89 y/o M admitted on 07/23/21 for bleeding penis. Chief Complaint: [] Principal diagnosis: Persistent gross hematuria Interval history: Principal diagnosis: Persistent gross hematuria Interval history: History of present illness: Mr. Ha is a 89 year old M history of pulmonary embolism questionable history on Eliquis, presenting with 2-day history of gross hematuria. There was no prior similar episode. Patient has acute onset gross hematuria over the past 2 days. Patient is unsure whether he is on Eliquis or not before his PE. He is also not sure for how long he has been diagnosed with PE. Patient denies LOC or lightheadedness. Patient denies chest pain or shortness of breath. Denies abdominal or pelvic pain. Due to his symptoms, he presented to our ED for further evaluation and treatments. Vital signs significant for mild tachycardia with heart rate 100s beats per minutes with rest of the vital signs within normal limits. CBC showing H&H 11.9 and 37.0, respectively. Urologist Dr. Paez was consulted who inserted a three-way urinary catheter and also performed cystoscopy with evacuation of about 1 L of fresh blood from his bladder. Continuous bladder irrigations started after the procedures. Admission request made for continuous bladder irrigations as well as frequent monitoring of H&H levels. 07/22: CBI continued, the discharge is now clear. H/H Stable. Denies pelvic or penile pain. Denies SOB. Denies palpitation. Denies chest pain. Denies fever or chills or sweating. 07/23: CBI continued, the discharge is now serosanguineous. Hemoglobin 10.7-->7.9. Denies pelvic or penile pain. Denies SOB. Denies palpitation. Denies chest pain. Denies fever or chills or sweating. c/o bilateral feet numbness. 07/24: CBI continued, the discharge is still serosanguineous. Hemoglobin stable 7.9-->8.2 s/p 1unit pRBC transfusion on 07/23. Denies pelvic or penile pain. Denies SOB. Denies palpitation. Denies chest pain. Denies fever or chills or sweating. 07/25: CBI stopped, 3 way urinary catheter discontinued by Dr. Paez. Hemoglobin 8.2-->7.7. Denies pelvic or penile pain. Denies SOB. Denies palpitation. Denies chest pain. Denies fever or chills or sweating. 07/26: Patient passed 3 large blood clots last night after 3 way catheter was d/c by Dr. Paez. [address] catheter replaced by Dr. Paez. He pulled out the catheter later the night. Dr. Paez replaced the 3 way catheter and ordered CBI. Hemoglobin 7.7-->8.4. 07/27: Hemoglobin 8.4-->8.3. Otherwise no other major overnight events. Denies any pelvic or penile pain. Denies SOB. Denies chest pain. Denies lightheadedness. 07/28 Yesterday Dietz became clotted off Dr. Lopez replaced it. Patient felt a little lightheaded at one-point but otherwise no complaints. 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 He was admitted and discharged on the on [facility]. Review of Systems: denies headache/fever/chills/nausea/vomiting/chest or abdominal pain/cough/dyspnea/diarrhea. Otherwise see above. Constitutional Vitals: Vital Signs Temp Pulse Resp BP Pulse Ox 97.5 F 71 18 92/51 95 07/28/21 02:42 07/28/21 02:42 07/28/21 02:42 07/28/21 02:42 07/28/21 02:42 Period Temp Pulse Resp BP Sys/Gomez Pulse Ox Last 24 Hr 97.5 F-99.0 F 66-93 18-22 86-107/50-58 90-98 Intake and Output 07/27/21 07/28/21 07/28/21 21:59 05:59 13:59 Intake Total 1600 600 Output Total 2450 450 Balance -850 600 -450 Weight 77.065 kg Intake & Output: Intake & Output 07/27/21 07/28/21 07/28/21 21:59 05:59 13:59 Intake Total 1600 600 Output Total 2450 450 Balance -850 600 -450 Weight 77.065 kg Intake: Oral 400 600 CBI Fluid 1200 Output: Urine Catheter Amount 800 450 CBI Fluid 1650 Other: Meal Lunch Percent of Meal Consumed 75% Urine Appearance Clear Clear Uretheral (Dietz) Small Blood Clots Clear Urine Color [place] Dark Red Blood Tinged Uretheral (Dietz) Bright Red Bright Red Net CBI 450 Exam: General: Alert, Awake, No acute Distress Eyes/N/T: EOMI, Head/Neck: neck supple, CV: RRR, No murmurs, Pulm: Clear b/l, no wheezing/rhonchi/rales Abd: soft, nontender, +BS x4 Ext: no clubbing/cyanosis/edema Neuro: Alert, no focal deficits, moves all extremities, dementia Skin: warm/dry OBJ DATA Labs CBC & Chem 7: 07/28/21 05:24 07/28/21 05:24 Labs: Abnormal Lab Results 07/28/21 07/28/21 07/27/21 05:24 05:24 05:33 WBC 12.9 H RBC 2.96 L Hgb 8.3 L Hct 25.9 L RDW 16.7 H MPV 10.5 H Neut % (Auto) 80.7 H Lymph % (Auto) 10.3 L Lymph # (Auto) 1.33 L [place] # (Auto) 1.04 H Absolute Neutrophils 10.37 H Sodium 131 L Carbon Dioxide BUN 25 H 26 H Glucose 106 H Calcium 8.5 L 8.3 L Total Protein 5.3 L Albumin 2.9 L Globulin Testosterone Level 07/27/21 07/26/21 07/26/21 05:33 05:42 05:42 WBC RBC 2.93 L 2.96 L Hgb 8.3 L 8.4 L Hct 25.6 L 26.3 L RDW 16.7 H 16.8 H MPV 10.5 H Neut % (Auto) Lymph % (Auto) 14.1 L 14.0 L Lymph # (Auto) 1.37 L [place] # (Auto) Absolute Neutrophils 8.31 H Sodium 131 L Carbon Dioxide 21 L BUN 28 H Glucose Calcium Total Protein 5.5 L Albumin 3.1 L Globulin Testosterone Level 2.69 L 07/25/21 07/25/21 05:39 05:39 WBC 11.4 H RBC 2.73 L Hgb 7.7 L Hct 24.1 L RDW 16.4 H MPV 10.6 H Neut % (Auto) 79.5 H Lymph % (Auto) 11.7 L Lymph # (Auto) 1.33 L [place] # (Auto) Absolute Neutrophils 9.08 H Sodium 130 L Carbon Dioxide BUN 29 H Glucose Calcium 8.3 L Total Protein 5.1 L Albumin 3.0 L Globulin 2.1 L Testosterone Level Meds: Medications Acetaminophen (Acetaminophen 325 Mg Tablet) 650 mg PO Q6HP PRN; Protocol PRN Reason: Per Pain Protocol/Fever > 101 Last Admin: 07/25/21 13:30 Dose: 650 mg Documented by: Atorvastatin Calcium (Atorvastatin 10 Mg Tablet) 10 mg PO HS [facility] Last Admin: 07/27/21 21:50 Dose: 10 mg Documented by: Bicalutamide (Bicalutamide 50 Mg Tablet) 50 mg PO DAILY [facility] Last Admin: 07/27/21 19:00 Dose: 50 mg Documented by: Bisacodyl (Bisacodyl 10 Mg Supp.Rect) 10 mg VT DAILYP PRN PRN Reason: Constipation Ceftriaxone Sodium (Ceftriaxone 1 Gm Vial) 1 gm IV DAILY [facility] Last Admin: 07/27/21 10:26 Dose: 1 gm Documented by: Docusate Sodium (Docusate Sodium 100 Mg Capsule) 100 mg PO BID [facility] Last Admin: 07/27/21 21:50 Dose: 100 mg Documented by: Duloxetine HCl (Duloxetine 30 Mg Capsule) 30 mg PO HS [facility] Last Admin: 07/27/21 21:50 Dose: 30 mg Documented by: Finasteride (Finasteride 5 Mg Tablet) 5 mg PO DAILY [facility] Last Admin: 07/27/21 10:27 Dose: 5 mg Documented by: Fluticasone Propionate (Fluticasone Hfa 220mcg Inhaler) 1 puff INH BID [facility] Last Admin: 07/27/21 21:52 Dose: Not Given Documented by: Furosemide (Furosemide 40 Mg Tablet) 40 mg PO DAILY [facility] Last Admin: 07/27/21 10:27 Dose: 40 mg Documented by: Guaifenesin (Guaifenesin 600 Mg Tab.Sr.12h) 600 mg PO BID [facility] Last Admin: 07/27/21 21:50 Dose: 600 mg Documented by: Dextrose/Sodium Chloride (Dextrose 5%-1/2ns Iv Solution) 1,000 mls @ 60 mls/hr IV .[id number] [facility] Last Admin: 07/27/21 18:43 Dose: 60 mls/hr Documented by: Lidocaine HCl (Lidocaine Jel 2% 1 Tube 5ml) 1 dose TOPICAL Q6HP PRN PRN Reason: PAINFUL URINATION Lisinopril (Lisinopril 2.5 Mg Tablet) 2.5 mg PO DAILY [facility] Last Admin: 07/27/21 11:04 Dose: Not Given Documented by: Lorazepam (Lorazepam 2 Mg/Ml Vial) 0.5 mg IV Q4-6HP PRN PRN Reason: ANXIETY/SEDATION Metoprolol Succinate (Metoprolol Succinate 50 Mg Tab.Xl.24h) 50 mg PO DAILY [facility] Last Admin: 07/27/21 10:42 Dose: 50 mg Documented by: Morphine Sulfate (Morphine 4 Mg/Ml Vial) 4 mg IV Q4HP PRN; Protocol PRN Reason: Per Pain Protocol Last Admin: 07/28/21 02:25 Dose: 4 mg Documented by: Ondansetron HCl (Ondansetron 4 Mg/2 Ml Vial) 4 mg IV Q6HP PRN PRN Reason: Nausea And Vomiting Oxycodone HCl (Oxycodone Hcl 5 Mg Tablet) 5 mg PO Q4HP PRN; Protocol PRN Reason: Per Pain Protocol Last Admin: 07/28/21 02:09 Dose: 5 mg Documented by: Solifenacin ( Vesicare) 5 Mg Tablet 1 dose PO DAILY [facility] Last Admin: 07/27/21 11:04 Dose: Not Given Documented by: Senna (Sennosides 1 Tablet) 2 tab PO [facility] Last Admin: 07/27/21 21:50 Dose: 2 tab Documented by: Sodium Chloride (0.9 % Sodium Chloride 10 Ml Syringe) 10 ml IV Q8 [facility] Last Admin: 07/28/21 06:13 Dose: Not Given Documented by: Spironolactone (Spironolactone 25 Mg Tablet) 25 mg PO DAILY [facility] Last Admin: 07/27/21 11:03 Dose: Not Given Documented by: Tamsulosin HCl (Tamsulosin 0.4 Mg Capsule) 0.4 mg PO [facility] Last Admin: 07/27/21 21:50 Dose: 0.4 mg Documented by: Zolpidem Tartrate (Zolpidem 5 Mg Tablet) 5 mg PO [facility] PRN PRN Reason: Insomnia A/P Narrative A/P Narrative: A: *Gross hematuria with associated acute blood loss anemia: -DDx: Secondary to anticoagulant therapy vs. UTI vs. malignancy -Urologist s/p 2 rounds of cystoscopy and evacuation of blood and clot -H&H stable *h/o recent pulmonary embolism May 22 and started on eliquis: *Hyponatremia: improved *HTN: on Toprol/ACEI/aldactone/lasix *Dementia: P: -per urology -Holding Eliquis for now -hold toprol/ACEI/diuretics for low BP -ppx: SCDs Code status: Time Spent With Patient Time: Total time spent is greater than 50% in coordination of care (as documented) at patient's floor/unit and/or counseling patient: QUALITY VTE Deep Vein Thrombosis/Pulmonary Embolism Present on Admission: No
[2021-07-28] MEDS: FINASTERIDE 5 MG TABLET PO SCH (09:30)
[2021-07-28] MEDS: guaiFENesin 600 MG TAB.SR.12H PO SCH ×2 (09:30→21:18)
[2021-07-28] MEDS: FLUTICASONE HFA 220MCG INHALER INH SCH ×2 (09:30→21:25)
[2021-07-28] MEDS: DOCUSATE SODIUM 100 MG CAPSULE PO SCH ×2 (09:30→21:18)
[2021-07-28] MEDS: BICALUTAMIDE 50 MG TABLET PO SCH (09:31)
[2021-07-28] MEDS: SOLIFENACIN 5 MG PO SCH (09:32)
[2021-07-28] MEDS: cefTRIAXone 1 GM VIAL IV SCH (09:32)
[2021-07-28] MEDS: METOPROLOL SUCCINATE 50 MG TAB.XL.24H PO SCH (09:44)
[2021-07-28] MEDS: DEXTROSE 5%-1/2NS 1,000 ML IV SCH (09:52)
[2021-07-28] MEDS: TAMSULOSIN 0.4 MG CAPSULE PO SCH (21:17)
[2021-07-28] MEDS: ATORVASTATIN 10 MG TABLET PO SCH (21:17)
[2021-07-28] MEDS: DULoxetine 30 MG CAPSULE PO SCH (21:18)
[2021-07-28] MEDS: SENNOSIDES 1 TABLET PO SCH (21:18)
[2021-07-29] MEDS: DEXTROSE 5%-1/2NS 1,000 ML IV SCH (02:02)
[2021-07-29] MEDS: 0.9 % SODIUM CHLORIDE 10 ML SYRINGE IV SCH (06:12)
[2021-07-29 06:21] LABS: Basophils # (Auto) 0.03 K/mcL (0.00-0.30); Basophils % (Auto) 0.3 % (0.0-2.0); Eosinophils # (Auto) 0.14 K/mcL (0.00-0.70); Eosinophils % (Auto) 1.5 % (0.0-7.0); Hematocrit 26.5 % (40.1-51.0); Hemoglobin 8.1 g/dL (13.7-17.5); Lymphocytes % (Auto) 13.1 % (15.5-49.0); Mean Cell Volume 91.1 fL (80.0-100.0); Mean Corpuscular HGB Conc 30.6 g/dL (31.0-36.0); Mean Platelet Volume 10.3 fL (7.4-10.4); Monocytes # (Auto) 0.69 K/mcL (0.10-0.90); Monocytes % (Auto) 7.5 % (1.0-12.0); Neutrophils % (Auto) 77.6 % (38.0-78.0); Platelet Count 241 K/mcL (140-440); RBC 2.91 M/mcL (4.63-6.08); Red Cell Distribution Width 17.2 % (11.5-14.5); WBC 9.2 K/mcL (4.5-11.0)
--- NOTE | 2021-07-29 07:16 | Urology Progress Note ---
SUBJECTIVE Subjective Patient information: Note initiated : 07/29/21 at 7:13 am Service Date, if different from initiated Date: [] Patient: Pancho Ha 89 y/o M admitted on 07/23/21 for bleeding penis. Chief Complaint: [] Principal diagnosis: Persistent gross hematuria Interval history: Pancho is an 89-year-old male with a history of gross hematuria. He was taken to the operating room for fulguration of bleeding. After that he pulled his catheter out and it needed to be replaced. I switched the catheter when the catheter became clogged and replaced with a to a Dietz catheter. He did well without continuous bladder irrigation and the catheter was removed yesterday. Since that time he has been voiding spontaneously sometimes in a urinal and sometimes incontinent. The urine is a tea color. His postvoid residuals are low. This morning he is resting comfortably in bed. Constitutional Vitals: Vital Signs Temp Pulse Resp BP Pulse Ox 97.9 F 61 20 96/57 97 07/29/21 03:44 07/29/21 03:44 07/29/21 03:44 07/29/21 03:44 07/29/21 03:44 Period Temp Pulse Resp BP Sys/Gomez Pulse Ox Last 24 Hr 97.5 F-98.4 F 59-71 18-22 86-111/54-62 97-100 Intake and Output 07/28/21 07/29/21 07/29/21 21:59 05:59 13:59 Intake Total 100 1520 Output Total 101 3 Balance -1 1517 Weight 79.923 kg Intake & Output: Intake & Output 07/28/21 07/29/21 07/29/21 21:59 05:59 13:59 Intake Total 100 1520 Output Total 101 3 Balance -1 1517 Weight 79.923 kg Intake: IV 970 Dextrose 5%-1/2Ns IV Solution 1 970 ,000 ml @ 60 mls/hr IV .[id number] [facility]ORST[facility] Rx#:[id number] Oral 100 550 Output: Void Amount 100 0 # of times incontinent of urine 1 3 Other: Urine Color Tea Colored Tea Colored General appearance: average body habitus, cooperative and no acute distress Head Head exam: Present atraumatic, normal inspection and normocephalic Respiratory Respiratory exam: Present normal respiratory exam and CTAB Cardiovascular Cardiovascular exam: Present normal rate and rhythm and RRR GI/Abdominal GI/Abdominal exam: Present soft; Absent distended and tenderness A/P Narrative A/P Narrative: Pancho is doing well after removal of his Dietz catheter 24 hours ago. He has been urinating spontaneously. He is sometimes incontinent and sometimes urinates in a urinal. The urine is reportedly a tea color. I feel that he will be able to go home this morning to his care facility. He will follow-up with me as an outpatient in my clinic next week. Time Spent With Patient Time: Total time spent is greater than 50% in coordination of care (as documented) at patient's floor/unit and/or counseling patient: Total time spent with greater than 50% in coordination of care (as documented) at patient's floor/unit and/or counseling patient:: less than 15 minutes
[2021-07-29 07:18] LABS: Blood Urea Nitrogen 19 mg/dL (8-23); Calcium 8.6 mg/dL (8.6-10.4); Carbon Dioxide 23 mmol/L (22-30); Chloride 100 mmol/L (96-108); Glomerular Filtration Rate 84; Glucose 101 mg/dL (70-105)
[2021-07-29] MEDS: guaiFENesin 600 MG TAB.SR.12H PO SCH (08:01)
[2021-07-29] MEDS: DOCUSATE SODIUM 100 MG CAPSULE PO SCH (08:01)
[2021-07-29] MEDS: FINASTERIDE 5 MG TABLET PO SCH (08:01)
[2021-07-29] MEDS: FLUTICASONE HFA 220MCG INHALER INH SCH (08:02)
[2021-07-29] MEDS: SOLIFENACIN 5 MG PO SCH (08:02)
[2021-07-29] MEDS: METOPROLOL SUCCINATE 50 MG TAB.XL.24H PO SCH (08:03)
[2021-07-29] MEDS: BICALUTAMIDE 50 MG TABLET PO SCH (10:48)
--- NOTE | 2021-08-03 11:05 | EKG ---
[facility] Test Date: 2021-07-23 Pat Name: Pancho Ha Department: [facility] Room: 128 Gender: Male Mobile Application Tester: DARYL : 1930 Requested By: Luda Wilkins Order Number: [id number] Reading MD: Madhu Mohan Measurements Intervals [place] Rate: 94 P: 31 [place]: 212 QRS: 17 QRSD: 104 T: 179 QT: 388 QTc: 486 Interpretive Statements AGE IS NOT ENTERED, ASSUMED TO BE 52 YEARS OLD FOR PURPOSE OF ECG INTERPRETATION SINUS RHYTHM VENTRICULAR PREMATURE COMPLEX FIRST DEGREE AV BLOCK LBBB LAE Electronically Signed On 08-03-2021 11:04:53 PDT by Madhu Mohan /[id number]
== END 2021-07-29 14:25 | DRG 669 ==
LOC: ED 08:55 → MEDSUR 08:55 → UNDODISOB 07-22 13:55
PROVIDERS: ADMIT Internal Medicine; ATTEND Internal Medicine